=== PATIENT | male | born 1950 | race Caucasian/White ===

== ENCOUNTER 2018-02-18 20:23 | Emergency (ER) | payer MEDICARE, MEDICAID ==
--- NOTE | 2018-02-18 20:44 | EDM.PDOC ---
ED HPI GENERAL MEDICAL PROBLEM - General Chief Complaint: Lower Extremity Injury/Pain Stated Complaint: SWELLING LT ANKLE Time Seen by Provider: 02/18/18 20:39 Source of Information: Reports: Patient History Limitations: Reports: No Limitations - History of Present Illness INITIAL COMMENTS - FREE TEXT/NARRATIVE: Complains of left ankle pain and swelling x 2 days. Denies injury. Pain increases with weight bearing. History of gout. Denies foot or leg pain. Onset Date: 02/17/18 Duration: Day(s): (2) Location: Reports: Lower Extremity, Left Quality: Reports: Dull Severity: Moderate Improves with: Reports: None Worsens with: Reports: Other (weight bearing) - Related Data Allergies Allergy/AdvReac Type Severity Reaction Status Date / Time No Known Allergies Allergy Verified 02/18/18 20:33 Home Meds: Home Meds Donepezil HCl 10 mg PO BEDTIME 07/20/13 [History] Lactulose [Chronulac] 30 gm PO DAILY PRN 01/25/18 [History] Indomethacin 25 mg PO TID PRN #15 capsule 02/18/18 [Rx] Past Medical History HEENT History: Reports: Other (See Below) Other HEENT History: had something with his left eye, doesn't remember what was done Cardiovascular History: Reports: High Cholesterol, Hypertension Gastrointestinal History: Reports: Cirrhosis, GERD Genitourinary History: Reports: Chronic Renal Insuffiency, Other (See Below) ( hypomagnesia) Musculoskeletal History: Reports: Back Pain, Chronic, Other (See Below) (Gout) Neurological History: Reports: Other (See Below) Other Neuro History: ETOH induced dementia Psychiatric History: Reports: Dementia, Other (See Below) Other Psychiatric History: [facility] adult, [facility] service involved Hematologic History: Reports: B12 Deficiency Dermatologic History: Reports: Psoriasis - Infectious Disease History Infectious Disease History: Reports: Influenza, Measles, Mumps - Past Surgical History HEENT Surgical History: Reports: Adenoidectomy, Tonsillectomy Cardiovascular Surgical History: Reports: None Respiratory Surgical History: Reports: None GI Surgical History: Reports: Other (See Below) Other GI Surgeries/Procedures: hx of abd surgery not sure what was done Neurological Surgical History: Reports: None Social & Family History - Family History Family Medical History: Unobtainable - Tobacco Use Smoking Status *Q: Former Smoker Tobacco Use Within Last Twelve Months: No - Caffeine Use Caffeine Use: Reports: Soda Review of Systems - Review of Systems Review Of Systems: See Below Constitutional: Reports: No Symptoms Eyes: Reports: No Symptoms Ears: Reports: No Symptoms Nose: Reports: No Symptoms Mouth/Throat: Reports: No Symptoms Respiratory: Reports: No Symptoms Cardiovascular: Reports: No Symptoms GI/Abdominal: Reports: No Symptoms Genitourinary: Reports: No Symptoms Musculoskeletal: Reports: Joint Pain (left ankle pain and swelling) Neurological: Reports: No Symptoms ED EXAM, GENERAL - Physical Exam Exam: See Below Exam Limited By: No Limitations General Appearance: Alert, WD/WN, No Apparent Distress Ears: Normal External Exam Nose: Normal Inspection Throat/Mouth: No Airway Compromise Head: Atraumatic, Normocephalic Neck: Full Range of Motion Respiratory/Chest: No Respiratory Distress Peripheral Pulses: 2+: Dorsalis Pedis (L) Extremities: Other (Left ankle tenderness and swelling. Left foot is swollen but not tender. No left calf tenderness or swelling. No left upper leg tenderness.) Neurological: No Motor/Sensory Deficits Skin Exam: Warm, Dry, Intact Course - Orders/Labs/Meds Orders: Active Orders 24 hr Category Date Time Status Ankle Min 3V Lt [CR] Stat Exams 02/18/18 20:37 Taken Labs: Laboratory Tests 02/18/18 02/18/18 02/18/18 Range/Units 20:45 20:45 20:45 WBC 6.0 (4.5-12.0) X10-3/uL RBC 3.76 L (4.30-5.75) x10(6)uL Hgb 12.3 (11.5-15.5) g/dL Hct 36.2 (30.0-51.3) % MCV 96.2 H (80-96) fL MCH 32.8 (27.7-33.6) pg MCHC 34.0 (32.2-35.4) g/dL RDW 13.3 (11.5-15.5) % Plt Count 71 L (125-369) X10(3)uL MPV 8.4 (7.4-10.4) fL Neut % (Auto) 65.3 (46-82) % Lymph % (Auto) 24.9 (13-37) % [place] % (Auto) 8.3 (4-12) % Eos % (Auto) 1 (1.0-5.0) % Baso % (Auto) 0 (0-2) % Neut # (Auto) 3.9 (1.6-8.3) # Lymph # (Auto) 1.5 (0.6-5.0) # [place] # (Auto) 0.5 (0.0-1.3) # Eos # (Auto) 0.1 (0.0-0.8) # Baso # (Auto) 0.0 (0.0-0.2) # Sodium 138 (135-145) mmol/L Potassium 4.1 (3.5-5.3) mmol/L Chloride 104 (100-110) mmol/L Carbon Dioxide 27 (21-32) mmol/L BUN 17 (7-18) mg/dL Creatinine 1.4 H (0.70-1.30) mg/dL Est Cr Clr Drug Dosing 43.32 mL/min Estimated GFR (MDRD) 50 L (>60) BUN/Creatinine Ratio 12.1 (9-20) Glucose 168 H (80-116) mg/dL Uric Acid 6.1 H (2.6-6.0) mg/dL Calcium 8.0 L (8.6-10.2) mg/dL Meds: Medications Discontinued Medications Generic Name Dose Route Start Last Admin Trade Name Freq PRN Reason Stop Dose Admin Indomethacin 50 mg 02/18/18 21:25 Indocin PO 02/18/18 21:26 ONETIME ONE Indomethacin Confirm 02/18/18 21:34 Indocin Administered 02/18/18 21:35 Dose 25 mg .ROUTE .STK-MED ONE - Radiology Interpretation Free Text/Narrative:: Left Ankle XR: No acute osseous abnormality Departure - Departure Time of Disposition: 21:41 Disposition: DC/Tfer to [facility] 03 Condition: Good Clinical Impression: Gout Qualifiers: Gout site: ankle Gout etiology: idiopathic Chronicity: acute Laterality: left Qualified Code(s): M10.072 - Idiopathic gout, left ankle and foot - Discharge Information *PRESCRIPTION DRUG MONITORING PROGRAM REVIEWED*: No *COPY OF PRESCRIPTION DRUG MONITORING REPORT IN PATIENT MARIA TERESA: Not Applicable Prescriptions: Indomethacin 25 mg PO TID PRN #15 capsule PRN Reason: Pain Instructions: Gout, [id number] Forms: ED Department Discharge Additional Instructions: Fill prescription for Indomethacin and take as directed. Follow up with your primary physician in 2-3 days. - My Orders Last 24 Hours: My Active Orders 02/18/18 20:37 Ankle Min 3V Lt [CR] Stat - Assessment/Plan Last 24 Hours: My Active Orders 02/18/18 20:37 Ankle Min 3V Lt [CR] Stat
[2018-02-18] MEDS ORDERED: Indomethacin 50 MG Cap PO ONE (21:25)
[2018-02-18] MEDS ORDERED: Indomethacin 25 MG Cap ONE (21:34)
[2018-02-18 22:29] VITALS: BP 131/53
--- NOTE | 2018-02-20 11:43 | CR ---
INDICATION: Pain, no trauma. LEFT ANKLE: Three views of the left ankle revealed soft tissue swelling, mostly over the lateral malleolus. The ankle mortise appears to be intact without a fracture, dislocation, or other definite bone or joint abnormality. MTDD
== END 2018-02-18 22:01 ==
LOC: FB.ED 20:23
DX: M10.072 Idiopathic gout, left ankle and foot (principal); I12.9 Hypertensive chronic kidney disease with stage 1 through stage 4 chronic kidney disease, or unspecified chronic kidney disease; N18.9 Chronic kidney disease, unspecified; Z87.891 Personal history of nicotine dependence
CPT/HCPCS: 36415; 73610-LT; 80048; 84550; 85025; 99283; A9270-GY

== ENCOUNTER 2019-03-21 10:38 | Emergency (ER) | payer MEDICARE ==
[2019-03-21] MEDS ORDERED: Sodium Chloride 0.9% 10 ML Syringe FLUSH PRN (11:17)
[2019-03-21] MEDS: Sodium Chloride 0.9% 1,000 ML IV SCH ×2 (11:34→12:58)
[2019-03-21] MEDS ORDERED: Insulin Regular, Human 100 Units/ML 3 ML Vial SUBCUT ONE (12:07)
[2019-03-21] MEDS ORDERED: Insulin Regular, Human 100 Units/ML 3 ML Vial IV ONE (12:42)
[2019-03-21] MEDS ORDERED: Sodium Chloride 0.9% 1,000 ML IV SCH (12:45)
--- NOTE | 2019-03-21 12:46 | EDM.PDOC ---
ED HPI GENERAL MEDICAL PROBLEM - General Chief Complaint: Diabetic Complaint Time Seen by Provider: 03/21/19 11:15 - History of Present Illness INITIAL COMMENTS - FREE TEXT/NARRATIVE: sent in from SNF with elevated blood sugar of > 500, polyphagia and polydipsia of unknown duration but got worse in the last 2 days has had low grade fever, has no cough , no abd pain , no rash , no sore throat Onset: Unknown/Unsure Onset Date: 03/21/19 (noted to have BS > 500) Duration: Constant Location: Reports: Generalized, Other (denies any loclized pain ) Improves with: Reports: None Worsens with: Reports: None Context: Reports: Other (staff noted pt drinking too much ( pt drinks "pop" ) a lot) Treatments [employer]: Reports: Other (see below) (no treatment) - Related Data Allergies Allergy/AdvReac Type Severity Reaction Status Date / Time No Known Allergies Allergy Verified 05/22/18 08:37 Home Meds: Home Meds Lactulose [Chronulac] 45 gm PO MOWEFR 01/25/18 [History] Acetaminophen [Tylenol Arthritis Pain] 650 mg PO Q4H 02/18/18 [History] OLANZapine [ZyPREXA] 20 mg PO DAILY 02/18/18 [History] Albuterol/Ipratropium [DuoNeb 3.0-0.5 MG/3 ML] 1 unit INH Q4HR PRN 05/22/18 [ History] Allopurinol [Zyloprim] 100 mg PO DAILY 05/22/18 [History] Cholecalciferol (Vitamin D3) [Vitamin D3] 2,000 unit PO DAILY 05/22/18 [History] Donepezil HCl 10 mg PO DAILY 05/22/18 [History] Furosemide 20 mg PO DAILY 05/22/18 [History] Magnesium Hydroxide [Milk of Magnesia] 30 ml PO DAILY PRN 05/22/18 [History] Hydrocortisone 1 applic TOP ASDIRECTED PRN 03/21/19 [History] Insulin Glarg,Human.Rec.Analog [Lantus Solostar] 5 unit SUBCUT BEDTIME #1 pen [Rx] Insulin NPH Hum/Reg Insulin Hm [Humulin 70/30 Kwikpen] 100 unit SQ BIDAC #10 ml 03/21/19 [Rx] Loperamide HCl [Anti-Diarrheal] 2 mg PO ASDIRECTED PRN 03/21/19 [History] QUEtiapine Fumarate [Quetiapine Fumarate ER] 200 mg PO DAILY 03/21/19 [History] QUEtiapine Fumarate [Quetiapine Fumarate] 12.5 mg PO TID 03/21/19 [History] Selenium Sulfide [Anti-Dandruff] 1 applic TOP ASDIRECTED PRN 03/21/19 [History] Past Medical History - Past Health History Medical/Surgical History: Denies Medical/Surgical History HEENT History: Reports: Other (See Below) Other HEENT History: had something with his left eye, doesn't remember what was done Cardiovascular History: Reports: High Cholesterol, Hypertension Respiratory History: Reports: SOB Gastrointestinal History: Reports: Cirrhosis, GERD Genitourinary History: Reports: Chronic Renal Insuffiency, Other (See Below) ( hypomagnesia) Musculoskeletal History: Reports: Back Pain, Chronic, Other (See Below) (Gout) Neurological History: Reports: Other (See Below) Other Neuro History: ETOH induced dementia Psychiatric History: Reports: Dementia, Other (See Below) Other Psychiatric History: [facility], [facility] service involved Hematologic History: Reports: B12 Deficiency Dermatologic History: Reports: Psoriasis - Infectious Disease History Infectious Disease History: Reports: Influenza, Measles, Mumps - Past Surgical History HEENT Surgical History: Reports: Adenoidectomy, Tonsillectomy Cardiovascular Surgical History: Reports: None Respiratory Surgical History: Reports: None GI Surgical History: Reports: Other (See Below) Other GI Surgeries/Procedures: hx of abd surgery not sure what was done Neurological Surgical History: Reports: None Social & Family History - Family History Family Medical History: Unobtainable - Caffeine Use Caffeine Use: Reports: Soda ED ROS GENERAL - Review of Systems Review Of Systems: See Below Constitutional: Reports: Chills, Malaise HEENT: Reports: No Symptoms Respiratory: Reports: No Symptoms Cardiovascular: Reports: No Symptoms. Denies: Chest Pain, Dyspnea on Exertion Endocrine: Reports: Fatigue, High Glucose, Polydypsia, Polyuria GI/Abdominal: Reports: Anorexia : Reports: Frequency Musculoskeletal: Reports: No Symptoms Skin: Reports: No Symptoms Neurological: Denies: Confusion, Paresthesia, Change in Speech, Gait Disturbance Psychiatric: Reports: No Symptoms ED EXAM GENERAL NO PERIP PULSE - Physical Exam Exam: See Below Text/Narrative:: alert but oriented to self only, does not recall where he lives, thinks he still drinks alcohol and not able to say where he lives, not oriented to time Exam Limited By: Other (cognitive impairment) Eye Exam: Bilateral Eye: EOMI Ears: Normal External Exam Nose: Clear Rhinorrhea Throat/Mouth: Normal Oropharynx Head: Atraumatic, Normocephalic Neck: Supple, Non-Tender, Full Range of Motion Respiratory/Chest: Lungs Clear, Normal Breath Sounds Cardiovascular: Normal Peripheral Pulses, Regular Rate, Rhythm, No JVD, No Murmur GI/Abdominal: Soft, Non-Tender. No: Guarding Back Exam: Full Range of Motion, CVA Tenderness (R), CVA Tenderness (L) Extremities: Normal Range of Motion, Non-Tender Neurological: Alert, Oriented Skin Exam: Warm, Dry Course - Vital Signs Text/Narrative:: pt remained stable Had Ivf , Regular Insulin given 10 units Sc and then 10units IV had 2 liters of fluid , Blood sugar gradually reduced to 216 pt was given food to eat and BS has remained stable <250 pt to start on diabetic diet Start Lantus Insulin 5units at bedtime Start Insulin 70/30 10 units bid with meals Glucose monitoring Before meals and at bedtime Snacks at bedtime Appointment to see PCP Last Recorded V/S: Last Vital Signs Temp 36.6 C 03/21/19 11:00 Pulse 93 03/21/19 11:00 Resp 14 03/21/19 11:00 BP 112/53 L 03/21/19 11:00 Pulse Ox 95 03/21/19 11:00 - Orders/Labs/Meds Orders: Active Orders 24 hr Category Date Time Status Blood Glucose Check, Bedside [RC] INTERMITTENT Care 03/21/19 10:45 Active Cardiac Monitoring [RC] CONTINUOUS Care 03/21/19 11:17 Active Communication Order [RC] STAT Care 03/21/19 11:17 Active Communication Order [RC] STAT Care 03/21/19 11:17 Active AMMONIA, PLASMA Stat Lab 03/21/19 13:20 Received BASIC METABOLIC PANEL,BMP [CHEM] Stat Lab 03/21/19 15:33 Ordered CULTURE BLOOD [BC] Urgent Lab 03/21/19 11:35 Received CULTURE BLOOD [BC] Urgent Lab 03/21/19 11:40 Received Sodium Chloride 0.9% [Normal Saline] 1,000 ml Med 03/21/19 12:45 Active IV ASDIRECTED Sodium Chloride 0.9% [Normal Saline] 1,000 ml Med 03/21/19 11:30 Active IV BOLUS Sodium Chloride 0.9% [Saline Flush] Med 03/21/19 11:17 Active 10 ml FLUSH ASDIRECTED PRN Blood Culture x2 Reflex Set [OM.PC] Urgent Oth 03/21/19 11:17 Ordered Peripheral IV Insertion Adult [OM.PC] Stat Oth 03/21/19 11:17 Ordered Resuscitation Status Stat Resus Stat 03/21/19 11:17 Ordered Medication Orders Sodium Chloride (Normal Saline) 1,000 mls @ 999 mls/hr IV BOLUS JAIRO Last Admin: 03/21/19 12:58 Dose: 999 mls/hr Infusion: 03/21/19 12:35 Dose: 999 mls/hr Admin: 03/21/19 11:34 Dose: 999 mls/hr Sodium Chloride (Normal Saline) 1,000 mls @ 999 mls/hr IV ASDIRECTED JAIRO Sodium Chloride (Saline Flush) 10 ml FLUSH ASDIRECTED PRN PRN Reason: Keep Vein Open Labs: Laboratory Tests 03/21/19 03/21/19 03/21/19 Range/Units 09:05 11:17 11:35 Sodium 141 (135-145) mmol/L Potassium 3.7 (3.5-5.3) mmol/L Chloride 102 (100-110) mmol/L Carbon Dioxide 31 (21-32) mmol/L BUN 8 (7-18) mg/dL Creatinine 1.5 H (0.70-1.30) mg/dL Est Cr Clr Drug Dosing TNP Estimated GFR (MDRD) 46 L (>60) BUN/Creatinine Ratio 5.3 L (9-20) Glucose 465 H* (80-116) mg/dL Hemoglobin A1c 8.4 H (4.5-6.2) % Lactic Acid (0.4-2.2) mmol/L Calcium 8.5 L (8.6-10.2) mg/dL Phosphorus 2.4 L (2.6-4.6) mg/dL Magnesium 1.8 (1.8-2.5) mg/dL Total Bilirubin 1.1 (0.1-1.3) mg/dL AST 23 D (5-25) IU/L ALT 40 H D (12-36) U/L Alkaline Phosphatase 162 H (56-112) IU/L NT-Pro-B Natriuret Pep (<=125) pg/mL Total Protein 7.4 (6.0-8.0) g/dL Albumin 3.0 L (3.2-4.6) g/dL Globulin 4.4 g/dL Albumin/Globulin Ratio 0.7 Urine Color Yellow (YELLOW) Urine Appearance Clear (CLEAR) Urine pH 5.0 (5.0-6.5) Ur Specific [place] 1.015 (1.010-1.025) Urine Protein Negative (NEGATIVE) mg/dL Urine Glucose (UA) >1000 H (NORMAL) mg/dL Urine Ketones Negative (NEGATIVE) mg/dL Urine Occult Blood Trace (NEGATIVE) Urine Nitrite Negative (NEGATIVE) Urine Bilirubin Negative (NEGATIVE) Urine Urobilinogen Normal (NEGATIVE) mg/dL Ur Leukocyte Esterase Negative (NEGATIVE) Urine RBC 0-5 (0-5) Urine WBC 0-5 (0-5) Ur Squamous Epith Cells Few H (NS,R,O) Urine Bacteria Few H (NS) Urine Yeast Occasional H (NS) 03/21/19 03/21/19 Range/Units 11:35 11:35 Sodium (135-145) mmol/L Potassium (3.5-5.3) mmol/L Chloride (100-110) mmol/L Carbon Dioxide (21-32) mmol/L BUN (7-18) mg/dL Creatinine (0.70-1.30) mg/dL Est Cr Clr Drug Dosing Estimated GFR (MDRD) (>60) BUN/Creatinine Ratio (9-20) Glucose (80-116) mg/dL Hemoglobin A1c (4.5-6.2) % Lactic Acid 1.7 (0.4-2.2) mmol/L Calcium (8.6-10.2) mg/dL Phosphorus (2.6-4.6) mg/dL Magnesium (1.8-2.5) mg/dL Total Bilirubin (0.1-1.3) mg/dL AST (5-25) IU/L ALT (12-36) U/L Alkaline Phosphatase (56-112) IU/L NT-Pro-B Natriuret Pep 321 H (<=125) pg/mL Total Protein (6.0-8.0) g/dL Albumin (3.2-4.6) g/dL Globulin g/dL Albumin/Globulin Ratio Urine Color (YELLOW) Urine Appearance (CLEAR) Urine pH (5.0-6.5) Ur Specific [place] (1.010-1.025) Urine Protein (NEGATIVE) mg/dL Urine Glucose (UA) (NORMAL) mg/dL Urine Ketones (NEGATIVE) mg/dL Urine Occult Blood (NEGATIVE) Urine Nitrite (NEGATIVE) Urine Bilirubin (NEGATIVE) Urine Urobilinogen (NEGATIVE) mg/dL Ur Leukocyte Esterase (NEGATIVE) Urine RBC (0-5) Urine WBC (0-5) Ur Squamous Epith Cells (NS,R,O) Urine Bacteria (NS) Urine Yeast (NS) Meds: Medications Generic Name Dose Route Start Last Admin Trade Name Freq PRN Reason Stop Dose Admin Sodium Chloride 1,000 mls @ 999 mls/hr 03/21/19 11:30 03/21/19 12:58 Normal Saline IV 999 mls/hr BOLUS JAIRO Administration Sodium Chloride 1,000 mls @ 999 mls/hr 03/21/19 12:45 Normal Saline IV ASDIRECTED JAIRO Sodium Chloride 10 ml 03/21/19 11:17 Saline Flush FLUSH ASDIRECTED PRN Keep Vein Open Discontinued Medications Generic Name Dose Route Start Last Admin Trade Name Freq PRN Reason Stop Dose Admin Insulin Human Regular 10 unit 03/21/19 12:07 03/21/19 12:13 Humulin R SUBCUT 03/21/19 12:08 10 unit ONETIME ONE Administration Insulin Human Regular 10 unit 03/21/19 12:42 03/21/19 12:51 Humulin R IV 03/21/19 12:43 10 units ONETIME ONE Administration - Radiology Interpretation Free Text/Narrative:: discussed with electronic engineering [employer] physician states Ok to send pt back to SNF with insulin can be monitored there , does not need to be admitted in hospital Departure - Departure Time of Disposition: 15:45 Disposition: DC/Tfer to SNF 03 Clinical Impression: Hyperglycemia, Dementia associated with alcoholism with behavioral disturbance - Discharge Information *PRESCRIPTION DRUG MONITORING PROGRAM REVIEWED*: Not Applicable *COPY OF PRESCRIPTION DRUG MONITORING REPORT IN PATIENT MARIA TERESA: Not Applicable Referrals: Abdoul Miller MD [Primary Care Provider] - Forms: ED Department Discharge Additional Instructions: Glucose monitoring Before meals and at Bedtime Diabetic diet - Problem List & Annotations (1) Hyperglycemia without ketosis SNOMED Code(s): 66526538 Code(s): R73.9 - HYPERGLYCEMIA, UNSPECIFIED Status: Acute Current Visit: Yes (2) Dehydration SNOMED Code(s): 79849566 Code(s): E86.0 - DEHYDRATION Status: Acute Current Visit: Yes (3) Dementia associated with alcoholism with behavioral disturbance SNOMED Code(s): 336454, 1204718428154 Code(s): F10.27 - ALCOHOL DEPENDENCE WITH ALCOHOL-INDUCED PERSISTING DEMENTIA Status: Acute Current Visit: Yes Annotation/Comment:: Admit to Observation, OT and PT evaluations, skin cares, reattempt Tele-Psych evaluation , coordinate with Chad Virgen [facility] regarding vulnerable adult status - My Orders Last 24 Hours: My Active Orders 03/21/19 10:45 Blood Glucose Check, Bedside [RC] INTERMITTENT 03/21/19 11:17 Cardiac Monitoring [RC] CONTINUOUS Communication Order [RC] STAT Communication Order [RC] STAT Sodium Chloride 0.9% [Saline Flush] 10 ml FLUSH ASDIRECTED PRN Blood Culture x2 Reflex Set [OM.PC] Urgent Peripheral IV Insertion Adult [OM.PC] Stat Resuscitation Status Stat 03/21/19 11:30 Sodium Chloride 0.9% [Normal Saline] 1,000 ml IV BOLUS 03/21/19 11:35 CULTURE BLOOD [BC] Urgent 03/21/19 11:40 CULTURE BLOOD [BC] Urgent 03/21/19 12:45 Sodium Chloride 0.9% [Normal Saline] 1,000 ml IV ASDIRECTED 03/21/19 13:20 AMMONIA, PLASMA Stat 03/21/19 15:33 BASIC METABOLIC PANEL,BMP [CHEM] Stat - Assessment/Plan Last 24 Hours: My Active Orders 03/21/19 10:45 Blood Glucose Check, Bedside [RC] INTERMITTENT 03/21/19 11:17 Cardiac Monitoring [RC] CONTINUOUS Communication Order [RC] STAT Communication Order [RC] STAT Sodium Chloride 0.9% [Saline Flush] 10 ml FLUSH ASDIRECTED PRN Blood Culture x2 Reflex Set [OM.PC] Urgent Peripheral IV Insertion Adult [OM.PC] Stat Resuscitation Status Stat 03/21/19 11:30 Sodium Chloride 0.9% [Normal Saline] 1,000 ml IV BOLUS 03/21/19 11:35 CULTURE BLOOD [BC] Urgent 03/21/19 11:40 CULTURE BLOOD [BC] Urgent 03/21/19 12:45 Sodium Chloride 0.9% [Normal Saline] 1,000 ml IV ASDIRECTED 03/21/19 13:20 AMMONIA, PLASMA Stat 03/21/19 15:33 BASIC METABOLIC PANEL,BMP [CHEM] Stat
[2019-03-21 13:57] LABS: HEMOGLOBIN A1C 8.4 % (4.5-6.2)
[2019-03-21 16:11] VITALS: BP 140/74; PULSE 107
== END 2019-03-21 16:45 ==
LOC: FB.ED 10:38
DX: E11.65 Type 2 diabetes mellitus with hyperglycemia (principal); F10.27 Alcohol dependence with alcohol-induced persisting dementia; I12.9 Hypertensive chronic kidney disease with stage 1 through stage 4 chronic kidney disease, or unspecified chronic kidney disease; E11.22 Type 2 diabetes mellitus with diabetic chronic kidney disease; N18.9 Chronic kidney disease, unspecified; Z79.4 Long term (current) use of insulin
CPT/HCPCS: 36415; 80048; 80053; 81001; 82140; 82962; 83036; 83605; 83735; 83880; 84100; 87040; 96361; 96372; 96374; 99284; 99285; J1815; J7030

== ENCOUNTER 2020-10-26 11:18 | Emergency (ER) | payer MEDICARE ==
[2020-10-26] MEDS ORDERED: Sodium Chloride 0.9% 10 ML Syringe FLUSH PRN (11:23)
[2020-10-26] MEDS ORDERED: Sodium Chloride 0.9% 500 ML IV ONE (11:24)
[2020-10-26] MEDS ORDERED: Insulin Regular, Human 100 Units/ML 3 ML Vial IV ONE (11:26)
[2020-10-26] MEDS ORDERED: Glucagon,Human Recombinant 1 MG Vial IM PRN ×2 (11:26→14:07)
[2020-10-26] MEDS ORDERED: Insulin Regular, Human 100 Units/ML 3 ML Vial SUBCUT ONE ×2 (11:26→14:07)
[2020-10-26] MEDS ORDERED: 50% Dextrose in Water 50 ML Syringe IVPUSH PRN ×2 (11:26→14:07)
--- NOTE | 2020-10-26 12:05 | EDM.PDOC ---
ED HPI GENERAL MEDICAL PROBLEM - General Chief Complaint: General Stated Complaint: CBG 600+ Time Seen by Provider: 10/26/20 12:00 Source of Information: Reports: Patient, [place] Records History Limitations: Reports: Other (Dementia) - History of Present Illness INITIAL COMMENTS - FREE TEXT/NARRATIVE: Patient has Type II Diabetes. He was more thirsty than usual today, so RN checked his blood sugar and was found to be >600. Patient states he feels fine, has no complaints. Last time [place] RN checked blood sugar before today was November 2019. Per [place] records, patient is not taking any diabetic medications, Insulin or otherwise. He was on Lantus 5 units qhs and Humulin 70/30 10 units BID on 03/21/19 ED visit. Onset: Today - Related Data Allergies Allergy/AdvReac Type Severity Reaction Status Date / Time No Known Allergies Allergy Verified 05/22/18 08:37 Home Meds: Home Meds Lactulose [Chronulac] 45 gm PO MOWEFR 01/25/18 [History] Acetaminophen [Tylenol Arthritis Pain] 650 mg PO Q4H PRN 02/18/18 [History] Donepezil HCl 10 mg PO DAILY 05/22/18 [History] Furosemide 20 mg PO MOWEFR 05/22/18 [History] allopurinoL [Zyloprim] 100 mg PO DAILY 05/22/18 [History] Loperamide HCl [Anti-Diarrheal] 2 mg PO ASDIRECTED PRN 03/21/19 [History] QUEtiapine Fumarate [Quetiapine Fumarate ER] 300 mg PO BEDTIME 03/21/19 [History] QUEtiapine Fumarate [Quetiapine Fumarate] 25 mg PO BID 03/21/19 [History] Aspirin 81 mg PO DAILY 10/26/20 [History] Calcium Carb/Vit D3/Minerals [Calcium 600+D Plus Minerals] 1 tab PO DAILY 10/26/20 [History] Fluocinonide [Lidex 0.05% Crm] 1 applic TOP SUSA 10/26/20 [History] Losartan Potassium 25 mg PO DAILY 10/26/20 [History] Mirtazapine [Remeron] 15 mg PO BEDTIME 10/26/20 [History] Multivitamin 1 tab PO DAILY 10/26/20 [History] OLANZapine [ZyPREXA] 10 mg PO DAILY 10/26/20 [History] Sodium Chloride [Saline Nasal [place]] 1 spray NASBOTH TID PRN 10/26/20 [History] hydrOXYzine pamoate [Hydroxyzine Pamoate] 25 mg PO 1200 10/26/20 [History] hydrOXYzine pamoate [Hydroxyzine Pamoate] 50 mg PO DAILY 10/26/20 [History] Past Medical History Cardiovascular History: Reports: High Cholesterol, Hypertension Gastrointestinal History: Reports: Cirrhosis, GERD Genitourinary History: Reports: Chronic Renal Insuffiency, Other (See Below) (hypomagnesia) Musculoskeletal History: Reports: Back Pain, Chronic, Other (See Below) (Gout) Neurological History: Reports: Other (See Below) Other Neuro History: ETOH induced dementia Psychiatric History: Reports: Dementia, Other (See Below) Other Psychiatric History: vunerable adult, [facility] service involved Endocrine/Metabolic History: Reports: Diabetes, Type II Hematologic History: Reports: B12 Deficiency Dermatologic History: Reports: Psoriasis - Infectious Disease History Infectious Disease History: Reports: Influenza, Measles, Mumps - Past Surgical History HEENT Surgical History: Reports: Adenoidectomy, Tonsillectomy Cardiovascular Surgical History: Reports: None Respiratory Surgical History: Reports: None GI Surgical History: Reports: Other (See Below) Other GI Surgeries/Procedures: hx of abd surgery not sure what was done Neurological Surgical History: Reports: None Social & Family History - Family History Family Medical History: Unobtainable - Caffeine Use Caffeine Use: Reports: Soda ED ROS GENERAL - Review of Systems Review Of Systems: Comprehensive ROS is negative, except as noted in HPI. ED EXAM, GENERAL - Physical Exam Exam: See Below Exam Limited By: No Limitations General Appearance: Alert, WD/WN, No Apparent Distress Eye Exam: Bilateral Eye: EOMI, PERRL Nose: Normal Inspection Head: Atraumatic, Normocephalic Neck: Full Range of Motion Respiratory/Chest: No Respiratory Distress, Lungs Clear, Normal Breath Sounds Cardiovascular: Regular Rate, Rhythm, No Murmur GI/Abdominal: Soft, Non-Tender, No Distention Back Exam: Full Range of Motion Extremities: Normal Range of Motion Neurological: Alert, No Motor/Sensory Deficits Psychiatric: Normal Affect, Normal Mood Skin Exam: Warm, Dry, Intact, Normal Color Course - Vital Signs Last Recorded V/S: Last Vital Signs Temp 36.8 C 10/26/20 12:29 Pulse 95 10/26/20 12:29 Resp 16 10/26/20 12:29 BP 134/60 10/26/20 12:29 Pulse Ox 99 10/26/20 12:29 - Orders/Labs/Meds Orders: Active Orders 24 hr Category Date Time Status Admission Status [Patient Status] [ADT] Routine ADT 10/26/20 12:51 Active Accu Check [Blood Glucose Check, Bedside] [RC] Q1H Care 10/26/20 11:23 Active Dextrose 50% in Water Med 10/26/20 11:26 Active 50 ml IVPUSH ASDIRECTED PRN Glucagon,Human Recombinant [GlucaGen] Med 10/26/20 11:26 Active 1 mg IM ASDIRECTED PRN Sodium Chloride 0.9% [Normal Saline] 1,000 ml Med 10/26/20 13:30 Active IV ASDIRECTED Sodium Chloride 0.9% [Saline Flush] Med 10/26/20 11:23 Active 10 ml FLUSH ASDIRECTED PRN Saline Lock Insert [OM.PC] Routine Ot 10/26/20 11:23 Ordered Medication Orders Dextrose/Water (50% Dextrose In Water 50 Ml Syringe) 50 ml IVPUSH ASDIRECTED PRN PRN Reason: Hypoglycemia Glucagon (Glucagon,Human Recombinant 1 Mg Vial) 1 mg IM ASDIRECTED PRN PRN Reason: Hypoglycemia Sodium Chloride (Normal Saline) 1,000 mls @ 75 mls/hr IV ASDIRECTED JAIRO Sodium Chloride (Sodium Chloride 0.9% 10 Ml Syringe) 10 ml FLUSH ASDIRECTED PRN PRN Reason: Keep Vein Open Labs: Laboratory Tests 10/26/20 10/26/20 10/26/20 Range/Units 11:24 12:00 12:00 WBC 4.1 (3.2-10.1) x10-3/uL RBC 3.90 (3.90-5.90) x10(6)uL Hgb 12.9 (12.9-17.7) g/dL Hct 38.7 (38.3-50.1) % MCV 99.1 H (80.8-98.7) fL MCH 33.0 (27.0-33.3) pg MCHC 33.3 (28.7-35.3) g/dL RDW 13.5 (12.4-15.0) % Plt Count 81 L (117-477) x10(3)uL MPV 10.0 (6.7-11.0) fL Neut % (Auto) 63.3 (40.3-71.8) % Lymph % (Auto) 28.0 (15.8-45.3) % Pepin % (Auto) 6.0 (5.5-15.2) % Eos % (Auto) 2.2 (0.1-6.8) % Baso % (Auto) 0.5 (0.3-3.8) % Neut # (Auto) 2.6 (1.7-6.9) x10-3/uL Lymph # (Auto) 1.1 (0.5-4.5) x10-3/uL Pepin # (Auto) 0.2 (0.0-1.2) x10-3/uL Eos # (Auto) 0.1 (0.0-0.6) x10-3/uL Baso # (Auto) 0.0 (0.0-0.3) x10-3/uL Sodium 129 L D (135-145) mmol/L Potassium 4.9 (3.5-5.3) mmol/L Chloride 96 L D (100-110) mmol/L Carbon Dioxide 23 (21-32) mmol/L BUN 12 (7-18) mg/dL Creatinine 2.0 H* (0.70-1.30) mg/dL Est Cr Clr Drug Dosing 31.67 mL/min Estimated GFR (MDRD) 33 L (>60) BUN/Creatinine Ratio 6.0 L (9-20) Glucose 876 H* D (80-116) mg/dL POC Glucose > 600 H* (80-116) mg/dL Calcium 7.8 L (8.6-10.2) mg/dL Urine Color (YELLOW) Urine Appearance (CLEAR) Urine pH (5.0-6.5) Ur Specific [place] (1.010-1.025) Urine Protein (NEGATIVE) mg/dL Urine Glucose (UA) (NORMAL) mg/dL Urine Ketones (NEGATIVE) mg/dL Urine Occult Blood (NEGATIVE) Urine Nitrite (NEGATIVE) Urine Bilirubin (NEGATIVE) Urine Urobilinogen (NEGATIVE) mg/dL Ur Leukocyte Esterase (NEGATIVE) Urine WBC (0-5) Ur Squamous Epith Cells (NS,R,O) Urine Bacteria (NS) 10/26/20 10/26/20 Range/Units 12:32 12:55 WBC (3.2-10.1) x10-3/uL RBC (3.90-5.90) x10(6)uL Hgb (12.9-17.7) g/dL Hct (38.3-50.1) % MCV (80.8-98.7) fL MCH (27.0-33.3) pg MCHC (28.7-35.3) g/dL RDW (12.4-15.0) % Plt Count (117-477) x10(3)uL MPV (6.7-11.0) fL Neut % (Auto) (40.3-71.8) % Lymph % (Auto) (15.8-45.3) % Pepin % (Auto) (5.5-15.2) % Eos % (Auto) (0.1-6.8) % Baso % (Auto) (0.3-3.8) % Neut # (Auto) (1.7-6.9) x10-3/uL Lymph # (Auto) (0.5-4.5) x10-3/uL Pepin # (Auto) (0.0-1.2) x10-3/uL Eos # (Auto) (0.0-0.6) x10-3/uL Baso # (Auto) (0.0-0.3) x10-3/uL Sodium (135-145) mmol/L Potassium (3.5-5.3) mmol/L Chloride (100-110) mmol/L Carbon Dioxide (21-32) mmol/L BUN (7-18) mg/dL Creatinine (0.70-1.30) mg/dL Est Cr Clr Drug Dosing mL/min Estimated GFR (MDRD) (>60) BUN/Creatinine Ratio (9-20) Glucose (80-116) mg/dL POC Glucose 588 H* (80-116) mg/dL Calcium (8.6-10.2) mg/dL Urine Color Yellow (YELLOW) Urine Appearance Clear (CLEAR) Urine pH 5.0 (5.0-6.5) Ur Specific [place] 1.010 (1.010-1.025) Urine Protein Negative (NEGATIVE) mg/dL Urine Glucose (UA) >1000 H (NORMAL) mg/dL Urine Ketones Negative (NEGATIVE) mg/dL Urine Occult Blood Negative (NEGATIVE) Urine Nitrite Negative (NEGATIVE) Urine Bilirubin Negative (NEGATIVE) Urine Urobilinogen Normal (NEGATIVE) mg/dL Ur Leukocyte Esterase Negative (NEGATIVE) Urine WBC 0-5 (0-5) Ur Squamous Epith Cells Occasional (NS,R,O) Urine Bacteria Few H (NS) Meds: Medications Generic Name Dose Route Start Last Admin Trade Name Freq PRN Reason Stop Dose Admin Dextrose/Water 50 ml 10/26/20 11:26 50% Dextrose In Water 50 Ml Syringe IVPUSH ASDIRECTED PRN Hypoglycemia Glucagon 1 mg 10/26/20 11:26 Glucagon,Human Recombinant 1 Mg Vial IM ASDIRECTED PRN Hypoglycemia Sodium Chloride 1,000 mls @ 75 mls/hr 10/26/20 13:30 Normal Saline IV ASDIRECTED JAIRO Sodium Chloride 10 ml 10/26/20 11:23 Sodium Chloride 0.9% 10 Ml Syringe FLUSH ASDIRECTED PRN Keep Vein Open Discontinued Medications Generic Name Dose Route Start Last Admin Trade Name Freq PRN Reason Stop Dose Admin Sodium Chloride 500 mls @ 500 mls/hr 10/26/20 11:24 10/26/20 11:48 Normal Saline IV 10/26/20 12:23 500 mls/hr .BOLUS ONE Administration Insulin Human Regular 5 unit 10/26/20 11:26 10/26/20 11:55 Insulin Regular, Human 100 Units/Ml 3 Ml Vial IV 10/26/20 11:27 5 units ONETIME ONE Administration Insulin Human Regular 10 unit 10/26/20 11:26 10/26/20 11:56 Insulin Regular, Human 100 Units/Ml 3 Ml Vial SUBCUT 10/26/20 11:27 10 units ONETIME ONE Administration - Re-Assessments/Exams Free Text/Narrative Re-Assessment/Exam: 10/26/20 12:53 Dr. Conley agrees to admit patient to observation. 10/26/20 13:04 Blood sugar improved to 588 after 500 ml NS bolus, Regular Humulin 5 units IV and 10 units SC. Departure - Departure Time of Disposition: 12:52 Disposition: Refer to Observation Condition: Fair Clinical Impression: [place] (acute kidney injury) Hyperglycemia due to type 2 diabetes mellitus Qualifiers: Diabetes mellitus local intermodal truck driver insulin use: without local intermodal truck driver use Qualified Code(s): E11.65 - Type 2 diabetes mellitus with hyperglycemia - Discharge Information *PRESCRIPTION DRUG MONITORING PROGRAM REVIEWED*: No *COPY OF PRESCRIPTION DRUG MONITORING REPORT IN PATIENT MARIA TERESA: Not Applicable Referrals: Abdoul Miller MD [Primary Care Provider] - Forms: ED Department Discharge Sepsis Event Note (ED) - Focused Exam Vital Signs: Vital Signs Temp Pulse Resp BP Pulse Ox 10/26/20 12:29 36.8 C 95 16 134/60 99 - My Orders Last 24 Hours: My Active Orders 10/26/20 11:23 Accu Check [Blood Glucose Check, Bedside] [RC] Q1H Sodium Chloride 0.9% [Saline Flush] 10 ml FLUSH ASDIRECTED PRN Saline Lock Insert [OM.PC] Routine 10/26/20 11:26 Dextrose 50% in Water 50 ml IVPUSH ASDIRECTED PRN Glucagon,Human Recombinant [GlucaGen] 1 mg IM ASDIRECTED PRN 10/26/20 12:51 Admission Status [Patient Status] [ADT] Routine 10/26/20 13:30 Sodium Chloride 0.9% [Normal Saline] 1,000 ml IV ASDIRECTED - Assessment/Plan Last 24 Hours: My Active Orders 10/26/20 11:23 Accu Check [Blood Glucose Check, Bedside] [RC] Q1H Sodium Chloride 0.9% [Saline Flush] 10 ml FLUSH ASDIRECTED PRN Saline Lock Insert [OM.PC] Routine 10/26/20 11:26 Dextrose 50% in Water 50 ml IVPUSH ASDIRECTED PRN Glucagon,Human Recombinant [GlucaGen] 1 mg IM ASDIRECTED PRN 10/26/20 12:51 Admission Status [Patient Status] [ADT] Routine 10/26/20 13:30 Sodium Chloride 0.9% [Normal Saline] 1,000 ml IV ASDIRECTED
[2020-10-26] MEDS ORDERED: Sodium Chloride 0.9% 1,000 ML IV SCH (13:30)
[2020-10-26] MEDS ORDERED: Sodium Chloride 0.9% 1,000 ML IV ONE (13:51)
[2020-10-26 15:01] VITALS: BP 148/42; PULSE 90
== END 2020-10-26 17:33 | disposition admitted as inpatient to this hospital (09) ==
LOC: FB.ED 11:18 → FB.MS 13:36 → UNDOADMOB 13:36
DX: E11.65 Type 2 diabetes mellitus with hyperglycemia (principal); N17.9 Acute kidney failure, unspecified; I10 Essential (primary) hypertension; Z79.899 Other long term (current) drug therapy
CPT/HCPCS: 36415; 80048; 81001; 82947; 85025; 99284; J1815; J7030; J7040

== ENCOUNTER 2021-09-03 15:00 | Emergency (ER) | payer MEDICARE ==
[2021-09-03 15:34] VITALS: BP 128/75; PULSE 95
== END 2021-09-03 16:00 ==
LOC: FB.ED 15:00
DX: R07.89 Other chest pain (principal); K21.9 Gastro-esophageal reflux disease without esophagitis; E78.00 Pure hypercholesterolemia, unspecified; I12.9 Hypertensive chronic kidney disease with stage 1 through stage 4 chronic kidney disease, or unspecified chronic kidney disease; E11.22 Type 2 diabetes mellitus with diabetic chronic kidney disease; N18.9 Chronic kidney disease, unspecified; Z79.899 Other long term (current) drug therapy; Z79.82 Long term (current) use of aspirin; Z79.4 Long term (current) use of insulin
CPT/HCPCS: 36415; 71045; 80053; 84484; 85025; 93005; 93010; 99283; 99285-25

== ENCOUNTER 2021-11-04 09:18 | Emergency (ER) | payer MEDICARE ==
[2021-11-04 10:06] LABS: ESTIMATED GFR 40 (>60)
[2021-11-04 12:05] VITALS: BP 128/66; PULSE 75
[2021-11-04] MEDS ORDERED: Ondansetron 4 MG Tab.DIS PO PRN (13:54)
[2021-11-04] MEDS ORDERED: 50% Dextrose in Water 50 ML Syringe IVPUSH PRN (14:00)
[2021-11-04] MEDS ORDERED: Glucagon,Human Recombinant 1 MG Vial IM PRN (14:00)
[2021-11-04] MEDS ORDERED: Polyvinyl Alcohol 1.4% Ophth Soln 15 ML Bottle EYEBOTH PRN (14:00)
[2021-11-04] MEDS ORDERED: Sulfamethoxazole/Trimethoprim 800-160 MG Tab PO SCH (14:15)
[2021-11-04] MEDS ORDERED: Lactulose Soln 10 GM/15 ML ML 473 ML Bottle PO SCH (18:00)
[2021-11-04] MEDS ORDERED: Insulin Glargine,Human Rec. Analog 100 Units/ML 3 ML Pen SUBCUT SCH (21:00)
[2021-11-04] MEDS ORDERED: Mirtazapine 15 MG Tab PO SCH (21:00)
[2021-11-05] MEDS ORDERED: Losartan 25 MG Tab PO SCH (09:00)
[2021-11-05] MEDS ORDERED: Non-Formulary Medication 1 Each (Multivitamin [Multivitamin] 1 EACH Tablet) PO SCH (09:00)
[2021-11-05] MEDS ORDERED: metFORMIN 500 MG Tab PO SCH (09:00)
== END 2021-11-04 10:55 ==
LOC: FB.ED 09:18
DX: N39.0 Urinary tract infection, site not specified (principal); F03.91 Unspecified dementia, unspecified severity, with behavioral disturbance; I12.9 Hypertensive chronic kidney disease with stage 1 through stage 4 chronic kidney disease, or unspecified chronic kidney disease; E11.22 Type 2 diabetes mellitus with diabetic chronic kidney disease; N18.9 Chronic kidney disease, unspecified; F10.20 Alcohol dependence, uncomplicated
CPT/HCPCS: 36415; 80053; 81001; 85025; 87086; 87088; 87186; 99284; 99285

== ENCOUNTER 2021-11-04 13:54 | Observation (INO) | payer MEDICARE ==
[2021-11-04] MEDS ORDERED: Ondansetron 4 MG Tab.DIS PO PRN (14:10)
[2021-11-04] MEDS ORDERED: Bisacodyl 10 MG Supp RECTAL PRN (14:16)
[2021-11-04] MEDS ORDERED: Glucagon,Human Recombinant 1 MG Vial IM PRN (14:16)
[2021-11-04] MEDS ORDERED: 50% Dextrose in Water 50 ML Syringe IVPUSH PRN (14:16)
[2021-11-04] MEDS ORDERED: Polyvinyl Alcohol 1.4% Ophth Soln 15 ML Bottle EYEBOTH PRN (14:16)
[2021-11-04] MEDS ORDERED: Acetaminophen 325 MG Tab PO PRN (14:23)
[2021-11-04] MEDS: SULFAMETHOXAZOLE PO SCH ×2 (15:02→20:10)
[2021-11-04] MEDS: TRIMETHOPRIM PO SCH ×2 (15:02→20:10)
[2021-11-04] MEDS ORDERED: Enoxaparin 30 MG/0.3 ML Syringe SUBCUT SCH (17:45)
[2021-11-04] MEDS: LACTULOSE PO SCH (18:31)
[2021-11-04] MEDS: CITRACAL PO SCH (18:33)
[2021-11-04] MEDS: [UNRECOGNIZED DRUG - OTHER] PO SCH (18:33)
[2021-11-04] MEDS: Gabapentin 100 MG Cap PO SCH (20:17)
[2021-11-04] MEDS ORDERED: Gabapentin 100 MG Cap PO SCH (21:00)
[2021-11-04] MEDS ORDERED: INSULIN GLARGINE HUMAN REC ANALOG 100 UNIT/ML SUBCUT SCH (21:00)
[2021-11-04] MEDS ORDERED: OLANZapine 5 MG Tab PO ONE (21:00)
[2021-11-04] MEDS ORDERED: Mirtazapine 15 MG Tab *PTOM PO SCH (21:00)
[2021-11-05 06:02] LABS: ESTIMATED GFR 40 (>60)
[2021-11-05] MEDS: CITRACAL PO SCH (07:56)
[2021-11-05] MEDS: [UNRECOGNIZED DRUG - OTHER] PO SCH (07:56)
[2021-11-05] MEDS: LACTULOSE PO SCH (07:57)
[2021-11-05] MEDS: Gabapentin 100 MG Cap PO SCH (08:00)
[2021-11-05] MEDS: TRIMETHOPRIM PO SCH (08:01)
[2021-11-05] MEDS: SULFAMETHOXAZOLE PO SCH (08:01)
[2021-11-05 08:05] VITALS: BP 132/62
[2021-11-05] MEDS ORDERED: HYDROXYZINE PAMOATE 50 MG PO SCH (09:00)
[2021-11-05] MEDS ORDERED: Losartan 25 MG Tab *PTOM PO SCH (09:00)
[2021-11-05] MEDS ORDERED: OMEPRAZOLE 20 MG PO SCH (09:00)
[2021-11-05] MEDS ORDERED: Furosemide 20 MG Tab *PTOM PO SCH (09:00)
[2021-11-05] MEDS ORDERED: metFORMIN 500 MG Tab *PTOM PO SCH (09:00)
[2021-11-05] MEDS ORDERED: Aspirin 81 MG Tab.Chew *PTOM PO SCH (09:00)
[2021-11-05] MEDS ORDERED: Multivitamin Tab *PTOM PO SCH (09:00)
[2021-11-05] MEDS ORDERED: Allopurinol 100 MG Tab *PTOM PO SCH (09:00)
[2021-11-05 09:13] VITALS: PULSE 75
[2021-11-05] MEDS ORDERED: HYDROXYZINE PAMOATE 25 MG PO SCH (12:00)
[2021-11-06] MEDS ORDERED: FLUOCINONIDE 0.05% TOP SCH (21:00)
== END 2021-11-05 10:20 ==
LOC: FB.MS 13:54
PROVIDERS: ADMIT Family Medicine; ATTEND Family Medicine
DX: R53.1 Weakness (principal); K21.9 Gastro-esophageal reflux disease without esophagitis; E78.00 Pure hypercholesterolemia, unspecified; E11.22 Type 2 diabetes mellitus with diabetic chronic kidney disease; I12.9 Hypertensive chronic kidney disease with stage 1 through stage 4 chronic kidney disease, or unspecified chronic kidney disease; E53.8 Deficiency of other specified B group vitamins; N18.32 Chronic kidney disease, stage 3b; F10.27 Alcohol dependence with alcohol-induced persisting dementia; E11.65 Type 2 diabetes mellitus with hyperglycemia; N30.00 Acute cystitis without hematuria; Z20.822 Contact with and (suspected) exposure to COVID-19; Z79.899 Other long term (current) drug therapy; Z79.82 Long term (current) use of aspirin; Z79.4 Long term (current) use of insulin; Z86.73 Personal history of transient ischemic attack (TIA), and cerebral infarction without residual deficits; Z98.890 Other specified postprocedural states; Z87.891 Personal history of nicotine dependence; W19.XXXA Unspecified fall, initial encounter
CPT/HCPCS: 36415; 80048; 82947; 85025; A9270-GY; G0378; J1815-GY; U0002

== ENCOUNTER 2022-01-14 21:23 | Observation (INO) | payer MEDICARE ==
[2022-01-14] MEDS ORDERED: Albuterol/Ipratropium 3.0-0.5 MG/3 ML Neb Soln NEB ONE (22:01)
[2022-01-14] MEDS: Sodium Chloride 0.9% 1,000 ML IV SCH ×2 (22:08→23:27)
[2022-01-14 22:09] LABS: ESTIMATED GFR 53 mL/min (>60)
[2022-01-14] MEDS ORDERED: Piperacillin/Tazobactam 4.5 GM in Sodium Chloride 0.9% 100 ML IV SCH (22:30)
[2022-01-14] MEDS ORDERED: Albuterol/Ipratropium 3.0-0.5 MG/3 ML Neb Soln NEB PRN (23:26)
[2022-01-14] MEDS ORDERED: Ondansetron 4 MG/2 ML SDV IV PRN (23:26)
[2022-01-14] MEDS ORDERED: Enoxaparin 40 MG/0.4 ML Syringe SUBCUT SCH (23:30)
[2022-01-14] MEDS ORDERED: Furosemide 20 MG Tab PO SCH (23:45)
[2022-01-14] MEDS ORDERED: traZODone 50 MG Tab PO PRN (23:53)
[2022-01-14] MEDS ORDERED: Gabapentin 100 MG Cap PO PRN (23:53)
[2022-01-14] MEDS ORDERED: 50% Dextrose in Water 50 ML Syringe IVPUSH PRN (23:53)
[2022-01-14] MEDS ORDERED: risperiDONE 0.5 MG Tab PO PRN (23:53)
[2022-01-14] MEDS ORDERED: Sodium Chloride 0.65% Nasal Spray 45 ML Bottle NASBOTH PRN (23:53)
[2022-01-14] MEDS ORDERED: Glucagon,Human Recombinant 1 MG Vial IM PRN (23:53)
[2022-01-15] MEDS ORDERED: Acetaminophen 650 MG Supp RECTAL PRN (00:44)
[2022-01-15] MEDS: Sodium Chloride 0.9% 1,000 ML IV SCH (06:16)
[2022-01-15 06:32] LABS: ESTIMATED GFR 53 mL/min (>60)
[2022-01-15] MEDS: Aspirin 81 MG Tab.Chew PO SCH (09:45)
[2022-01-15] MEDS: Allopurinol 100 MG Tab PO SCH (09:45)
[2022-01-15] MEDS: Lactulose Soln 10 GM/15 ML 30 ML UD Cup PO SCH ×3 (09:45→17:48)
[2022-01-15] MEDS: Calcium Carbonate 500 MG Tablet PO SCH ×2 (09:45→17:48)
[2022-01-15] MEDS: Losartan 25 MG Tab PO SCH (09:45)
[2022-01-15] MEDS: Gabapentin 100 MG Cap PO SCH ×4 (09:45→21:36)
[2022-01-15] MEDS: risperiDONE 1 MG Tab PO SCH ×3 (09:45→22:02)
[2022-01-15] MEDS: Sodium Chloride 0.9% 10 ML Syringe FLUSH PRN ×3 (10:30→16:12)
[2022-01-15] MEDS: Piperacillin/Tazobactam 3.375 GM in Sodium Chloride 0.9% 50 ML IV SCH ×3 (10:30→22:22)
[2022-01-15] MEDS: Pantoprazole 40 MG Tab.CR PO SCH (10:32)
[2022-01-15] MEDS: LORazepam 1 MG Tab PO SCH ×3 (10:33→22:04)
[2022-01-15] MEDS: metFORMIN 500 MG Tab PO SCH (11:26)
[2022-01-15] MEDS ORDERED: DULoxetine 60 MG Cap PO SCH (21:00)
[2022-01-15] MEDS ORDERED: traZODone 100 MG Tab PO SCH (21:00)
[2022-01-15] MEDS ORDERED: Mirtazapine 15 MG Tab PO SCH (21:00)
[2022-01-15] MEDS ORDERED: Insulin Glargine,Human Rec. Analog 100 Units/ML 3 ML Pen SUBCUT SCH (21:00)
[2022-01-15] MEDS ORDERED: FLUOCINONIDE 0.05% TOP SCH (21:00)
[2022-01-15] MEDS ORDERED: LANTUS 100 UNIT/ML SUBCUT SCH (22:15)
[2022-01-15] MEDS: LACTULOSE PO SCH (22:24)
[2022-01-16] MEDS: Sodium Chloride 0.9% 10 ML Syringe FLUSH PRN ×3 (03:53→11:06)
[2022-01-16] MEDS: Piperacillin/Tazobactam 3.375 GM in Sodium Chloride 0.9% 50 ML IV SCH ×2 (03:54→09:44)
[2022-01-16 06:52] LABS: ESTIMATED GFR 53 mL/min (>60)
[2022-01-16] MEDS ORDERED: LACTULOSE PO SCH (08:00)
[2022-01-16] MEDS: Aspirin 81 MG Tab.Chew PO SCH (08:18)
[2022-01-16] MEDS: Losartan 25 MG Tab PO SCH (08:19)
[2022-01-16] MEDS: Allopurinol 100 MG Tab PO SCH (08:20)
[2022-01-16] MEDS: risperiDONE 1 MG Tab PO SCH ×3 (08:22→13:39)
[2022-01-16] MEDS: LACTULOSE PO SCH ×3 (08:23→12:06)
[2022-01-16] MEDS: Pantoprazole 40 MG Tab.CR PO SCH (08:28)
[2022-01-16] MEDS: Gabapentin 100 MG Cap PO SCH ×3 (08:32→13:40)
[2022-01-16] MEDS: LORazepam 1 MG Tab PO SCH ×3 (08:33→13:39)
[2022-01-16] MEDS: Calcium Carbonate 500 MG Tablet PO SCH ×2 (09:40→10:46)
[2022-01-16] MEDS: metFORMIN 500 MG Tab PO SCH ×2 (11:57→12:06)
[2022-01-16 13:23] VITALS: BP 116/56; PULSE 78
[2022-01-16] MEDS ORDERED: LANTUS 100 UNIT/ML SUBCUT SCH (21:00)
== END 2022-01-16 14:45 ==
LOC: FB.ED 21:23 → FB.MS 23:17
PROVIDERS: ADMIT Emergency Medicine; ATTEND Student in an Organized Health Care Education/Training Program
DX: G93.41 Metabolic encephalopathy (principal); I12.9 Hypertensive chronic kidney disease with stage 1 through stage 4 chronic kidney disease, or unspecified chronic kidney disease; E11.22 Type 2 diabetes mellitus with diabetic chronic kidney disease; N18.32 Chronic kidney disease, stage 3b; E78.00 Pure hypercholesterolemia, unspecified; K21.9 Gastro-esophageal reflux disease without esophagitis; E66.9 Obesity, unspecified; E86.0 Dehydration; F01.51 Vascular dementia, unspecified severity, with behavioral disturbance; G93.40 Encephalopathy, unspecified; R62.7 Adult failure to thrive; R77.0 Abnormality of albumin; F10.27 Alcohol dependence with alcohol-induced persisting dementia; M10.9 Gout, unspecified; M10.072 Idiopathic gout, left ankle and foot; D69.6 Thrombocytopenia, unspecified; E53.8 Deficiency of other specified B group vitamins; F03.90 Unspecified dementia, unspecified severity, without behavioral disturbance, psychotic disturbance, mood disturbance, and anxiety; J18.9 Pneumonia, unspecified organism; Z86.73 Personal history of transient ischemic attack (TIA), and cerebral infarction without residual deficits; Z90.49 Acquired absence of other specified parts of digestive tract; Z98.890 Other specified postprocedural states; Z88.1 Allergy status to other antibiotic agents; Z88.6 Allergy status to analgesic agent; Z88.8 Allergy status to other drugs, medicaments and biological substances; Z51.5 Encounter for palliative care; Z79.4 Long term (current) use of insulin; Z79.84 Long term (current) use of oral hypoglycemic drugs; Z79.899 Other long term (current) drug therapy; Z79.83 Long term (current) use of bisphosphonates; Z79.51 Long term (current) use of inhaled steroids
CPT/HCPCS: 36415; 71045; 80048; 80053; 81003; 82947; 83605; 85025; 86140; 87040; 94640; A9270; J1815; J2543; J3490; J7030; 99285; J7620

== ENCOUNTER 2022-05-10 03:48 | Inpatient (IN) | payer MEDICARE ==
[2022-05-10] MEDS ORDERED: Sodium Chloride 0.9% 10 ML Syringe FLUSH PRN (04:01)
[2022-05-10] MEDS ORDERED: methylPREDNISolone Sodium Succinate 500 MG/4 ML SDV IVPUSH ONE (04:04)
[2022-05-10] MEDS ORDERED: methylPREDNISolone Sodium Succinate 125 MG/2 ML SDV ONE (04:12)
[2022-05-10 04:14] LABS: ESTIMATED GFR 45 mL/min (>60)
[2022-05-10] MEDS ORDERED: methylPREDNISolone Sodium Succinate 125 MG/2 ML SDV IVPUSH ONE (04:15)
[2022-05-10] MEDS: Albuterol/Ipratropium 3.0-0.5 MG/3 ML Neb Soln NEB PRN (04:15)
[2022-05-10 04:34] LABS: PO2 ARTERIAL,POC 58 mmHg (83-108)
[2022-05-10] MEDS ORDERED: Ampicillin/Sulbactam Na 3 GM in Sodium Chloride 0.9% 100 ML IV ONE (05:00)
[2022-05-10] MEDS: Sodium Chloride 0.9% 1,000 ML IV SCH ×2 (05:10→14:15)
[2022-05-10] MEDS ORDERED: Acetaminophen 500 MG Tab PO ONE (05:37)
[2022-05-10 05:47] LABS: CORONAVIRUS COVID-19 NAA NEGATIVE (NEGATIVE)
[2022-05-10] MEDS: Ampicillin/Sulbactam Na 3 GM in Sodium Chloride 0.9% 100 ML IV SCH ×3 (10:56→22:00)
[2022-05-10] MEDS ORDERED: Glucose Gel 15 GM in 37.5 GM Tube PO PRN (11:21)
[2022-05-10] MEDS ORDERED: guaiFENesin 100 MG/5 ML Soln 5 ML UD Cup PO PRN (11:21)
[2022-05-10] MEDS ORDERED: Sodium Chloride 0.65% Nasal Spray 45 ML Bottle NASBOTH PRN (11:21)
[2022-05-10] MEDS ORDERED: Bisacodyl 10 MG Supp RECTAL PRN (11:21)
[2022-05-10] MEDS ORDERED: Albuterol 0.083% 2.5 MG/3 ML Neb Soln NEB PRN (11:21)
[2022-05-10] MEDS ORDERED: Glucagon,Human Recombinant 1 MG Vial IM PRN ×2 (11:21→12:00)
[2022-05-10] MEDS ORDERED: Polyvinyl Alcohol 1.4% Ophth Soln 15 ML Bottle EYEBOTH PRN (11:56)
[2022-05-10] MEDS ORDERED: Azithromycin 500 MG in Sodium Chloride 0.9% 250 ML IV SCH (12:00)
[2022-05-10] MEDS ORDERED: 50% Dextrose in Water 50 ML Syringe IVPUSH PRN (12:00)
[2022-05-10] MEDS: Losartan 25 MG Tab PO SCH (12:25)
[2022-05-10] MEDS: Aspirin 81 MG Tab.Chew PO SCH (12:25)
[2022-05-10] MEDS: Pantoprazole 40 MG Tab.CR PO SCH (12:30)
[2022-05-10] MEDS: Furosemide 20 MG Tab PO SCH (12:30)
[2022-05-10] MEDS: Polyethylene Glycol 3350 Powder 17 GM Packet PO SCH (12:30)
[2022-05-10] MEDS: Allopurinol 100 MG Tab PO SCH (12:31)
[2022-05-10] MEDS: Lactulose Soln 10 GM/15 ML 15 ML UD Cup PO SCH ×2 (12:32→18:13)
[2022-05-10] MEDS: risperiDONE 1 MG Tab PO SCH ×2 (12:46→18:14)
[2022-05-10] MEDS ORDERED: Insulin Lispro 100 Unit/ML 3 ML KwikPen SUBCUT ONE (13:11)
[2022-05-10] MEDS: LORazepam 1 MG Tab PO SCH ×3 (13:14→20:50)
[2022-05-10] MEDS: Gabapentin 400 MG Cap PO SCH ×3 (13:14→20:50)
[2022-05-10] MEDS: Insulin Lispro 100 Unit/ML 3 ML KwikPen SUBCUT SCH ×2 (13:15→18:11)
[2022-05-10] MEDS: DULoxetine 60 MG Cap PO SCH (18:10)
[2022-05-10] MEDS: Mirtazapine 15 MG Tab PO SCH (20:50)
[2022-05-10] MEDS: traZODone 50 MG Tab PO SCH (20:50)
[2022-05-11] MEDS: Ampicillin/Sulbactam Na 3 GM in Sodium Chloride 0.9% 100 ML IV SCH (04:59)
[2022-05-11] MEDS: Pantoprazole 40 MG Tab.CR PO SCH (06:06)
[2022-05-11 06:34] LABS: ESTIMATED GFR 53 mL/min (>60)
[2022-05-11] MEDS ORDERED: cefTRIAXone 1 GM Vial IVPUSH SCH (08:00)
[2022-05-11] MEDS: Lactulose Soln 10 GM/15 ML 15 ML UD Cup PO SCH ×3 (08:20→17:06)
[2022-05-11] MEDS: Losartan 25 MG Tab PO SCH (08:21)
[2022-05-11] MEDS: risperiDONE 1 MG Tab PO SCH ×3 (08:21→17:06)
[2022-05-11] MEDS: Allopurinol 100 MG Tab PO SCH (08:21)
[2022-05-11] MEDS: Aspirin 81 MG Tab.Chew PO SCH (08:21)
[2022-05-11] MEDS: Furosemide 20 MG Tab PO SCH (08:21)
[2022-05-11] MEDS: Polyethylene Glycol 3350 Powder 17 GM Packet PO SCH (08:22)
[2022-05-11] MEDS: LORazepam 1 MG Tab PO SCH ×4 (08:24→20:14)
[2022-05-11] MEDS: Gabapentin 400 MG Cap PO SCH ×4 (08:24→20:14)
[2022-05-11] MEDS: Insulin Lispro 100 Unit/ML 3 ML KwikPen SUBCUT SCH ×3 (08:25→17:34)
[2022-05-11] MEDS ORDERED: Sodium Chloride 0.45% 1,000 ML IV SCH (09:30)
[2022-05-11] MEDS: Albuterol/Ipratropium 3.0-0.5 MG/3 ML Neb Soln NEB PRN ×2 (10:39→20:14)
[2022-05-11] MEDS: Amoxicillin/Clavulanate K 875-125 MG Tab PO SCH ×2 (11:56→20:14)
[2022-05-11] MEDS ORDERED: Azithromycin 500 MG Tab PO SCH (12:00)
[2022-05-11] MEDS: DULoxetine 60 MG Cap PO SCH (17:06)
[2022-05-11] MEDS: Mirtazapine 15 MG Tab PO SCH (20:14)
[2022-05-11] MEDS: traZODone 50 MG Tab PO SCH (20:14)
[2022-05-12] MEDS: Pantoprazole 40 MG Tab.CR PO SCH (05:43)
[2022-05-12 07:33] LABS: ESTIMATED GFR 53 mL/min (>60)
[2022-05-12] MEDS: Insulin Lispro 100 Unit/ML 3 ML KwikPen SUBCUT SCH (08:23)
[2022-05-12 08:35] VITALS: BP 114/49; PULSE 107
[2022-05-12] MEDS: LORazepam 1 MG Tab PO SCH (08:39)
[2022-05-12] MEDS: Lactulose Soln 10 GM/15 ML 15 ML UD Cup PO SCH (08:39)
[2022-05-12] MEDS: risperiDONE 1 MG Tab PO SCH (08:39)
[2022-05-12] MEDS: Amoxicillin/Clavulanate K 875-125 MG Tab PO SCH (08:39)
[2022-05-12] MEDS: Aspirin 81 MG Tab.Chew PO SCH (08:39)
[2022-05-12] MEDS: Gabapentin 400 MG Cap PO SCH (08:40)
[2022-05-12] MEDS: Furosemide 20 MG Tab PO SCH (08:40)
[2022-05-12] MEDS: Polyethylene Glycol 3350 Powder 17 GM Packet PO SCH (08:40)
[2022-05-12] MEDS: Losartan 25 MG Tab PO SCH (08:40)
[2022-05-12] MEDS: Allopurinol 100 MG Tab PO SCH (08:40)
[2022-05-12] MEDS: Azithromycin 500 MG Tab PO ONE ×2 (10:29→10:48)
[2022-05-14] MEDS ORDERED: FLUOCINONIDE 0.05% TOP SCH (21:00)
== END 2022-05-12 10:45 | DRG 871 ==
LOC: FB.ED 03:48 → FB.MS 05:52 → EDBD 05:52
PROVIDERS: ADMIT Family Medicine; ATTEND Student in an Organized Health Care Education/Training Program
DX: A41.9 Sepsis, unspecified organism (principal); J69.0 Pneumonitis due to inhalation of food and vomit; E87.0 Hyperosmolality and hypernatremia; R65.20 Severe sepsis without septic shock; I12.9 Hypertensive chronic kidney disease with stage 1 through stage 4 chronic kidney disease, or unspecified chronic kidney disease; F10.27 Alcohol dependence with alcohol-induced persisting dementia; N17.9 Acute kidney failure, unspecified; R62.7 Adult failure to thrive; M10.072 Idiopathic gout, left ankle and foot; Z79.4 Long term (current) use of insulin; D69.6 Thrombocytopenia, unspecified; Z20.822 Contact with and (suspected) exposure to COVID-19; Z51.5 Encounter for palliative care; E78.00 Pure hypercholesterolemia, unspecified; K21.9 Gastro-esophageal reflux disease without esophagitis; E11.22 Type 2 diabetes mellitus with diabetic chronic kidney disease; N18.9 Chronic kidney disease, unspecified; F41.9 Anxiety disorder, unspecified; Z88.8 Allergy status to other drugs, medicaments and biological substances; Z79.82 Long term (current) use of aspirin; Z79.84 Long term (current) use of oral hypoglycemic drugs; Z79.899 Other long term (current) drug therapy; Z79.52 Long term (current) use of systemic steroids; Z86.73 Personal history of transient ischemic attack (TIA), and cerebral infarction without residual deficits
CPT/HCPCS: 0241U; 36415; 71045; 80048; 80053; 82803; 82947; 83605; 83880; 84484; 85025; 85379; 86140; 87040; 93005; 94640; 96374; 99285-25; A9270-GY; J0295; J0456; J1815; J2930; J3490; J7030; J7050; J7620; U0002

== ENCOUNTER 2022-07-06 04:10 | Inpatient (IN) | payer MEDICARE ==
[2022-07-06] MEDS ORDERED: Albuterol/Ipratropium 3.0-0.5 MG/3 ML Neb Soln NEB ONE (04:39)
[2022-07-06] MEDS ORDERED: Albuterol/Ipratropium 3.0-0.5 MG/3 ML Neb Soln ONE (04:40)
[2022-07-06] MEDS ORDERED: methylPREDNISolone Sodium Succinate 40 MG/1 ML SDV IVPUSH ONE (04:41)
[2022-07-06] MEDS: Sodium Chloride 0.9% 10 ML Syringe FLUSH PRN (04:45)
[2022-07-06 05:15] LABS: BASE EXCESS VENOUS,POC 2 mmol/L (-2 - 3+); PCO2 VENOUS,POC 53 mmHg (41-51); PH VENOUS,POC 7.34 pH Units (7.32-7.43)
[2022-07-06] MEDS ORDERED: Acetaminophen 650 MG Supp RECTAL ONE (05:26)
[2022-07-06 05:27] LABS: ESTIMATED GFR 53 mL/min (>60)
[2022-07-06] MEDS ORDERED: Sodium Chloride 0.9% 500 ML IV ONE (05:31)
[2022-07-06 06:30] LABS: CORONAVIRUS COVID-19 NAA NEGATIVE (NEGATIVE)
[2022-07-06] MEDS ORDERED: Sodium Chloride 0.9% 1,000 ML IV SCH ×2 (06:30→06:45)
[2022-07-06] MEDS ORDERED: Acetaminophen 650 MG Supp RECTAL PRN (06:36)
[2022-07-06] MEDS ORDERED: Ondansetron 4 MG/2 ML SDV IV PRN (06:36)
[2022-07-06] MEDS ORDERED: 50% Dextrose in Water 50 ML Syringe IVPUSH PRN (06:41)
[2022-07-06] MEDS ORDERED: Glucagon,Human Recombinant 1 MG Vial IM PRN ×2 (06:41→09:26)
[2022-07-06] MEDS ORDERED: Insulin Lispro 100 Unit/ML 3 ML KwikPen SUBCUT SCH (06:45)
[2022-07-06] MEDS ORDERED: Magnesium Sulfate/Water 2 GM in Premix Bag 1 BAG IV ONE (06:46)
[2022-07-06] MEDS ORDERED: Piperacillin/Tazobactam 3.375 GM in Sodium Chloride 0.9% 50 ML IV SCH (07:00)
[2022-07-06] MEDS ORDERED: VANCOmycin 1.75 GM/350 ML 1.75 GM in Premix Bag 1 BAG IV ONE (08:00)
[2022-07-06] MEDS ORDERED: Enoxaparin 30 MG/0.3 ML Syringe SUBCUT SCH (09:00)
[2022-07-06] MEDS ORDERED: Glucose Gel 15 GM in 37.5 GM Tube PO PRN (09:26)
[2022-07-06] MEDS ORDERED: Bisacodyl 10 MG Supp RECTAL PRN ×2 (09:26)
[2022-07-06] MEDS ORDERED: Non-Formulary Medication 1 Each (Carboxymethylcellulose Sodium [Artificial Tears] 15 ML Dr EYEBOTH PRN (09:26)
[2022-07-06] MEDS ORDERED: Carboxymethylcellulose Sodium 0.5% Ophth Soln 15 ML Bottle EYEBOTH PRN (10:00)
[2022-07-06] MEDS: Pantoprazole 40 MG Vial IVPUSH SCH ×2 (10:03→17:46)
[2022-07-06] MEDS: Gabapentin 400 MG Cap PO SCH ×4 (10:14→20:37)
[2022-07-06] MEDS: LORazepam 1 MG Tab PO SCH ×4 (10:15→20:32)
[2022-07-06] MEDS: risperiDONE 1 MG Tab PO SCH ×3 (10:19→17:42)
[2022-07-06] MEDS: Losartan 25 MG Tab PO SCH (10:19)
[2022-07-06] MEDS: Aspirin 81 MG Tab.Chew PO SCH (10:20)
[2022-07-06] MEDS: Lactulose Soln 10 GM/15 ML 30 ML UD Cup PO SCH ×2 (10:20→20:34)
[2022-07-06] MEDS: Allopurinol 100 MG Tab PO SCH (10:20)
[2022-07-06] MEDS: Albuterol/Ipratropium 3.0-0.5 MG/3 ML Neb Soln NEB SCH ×4 (10:21→20:37)
[2022-07-06] MEDS: Sodium Chloride 0.45% 1,000 ML IV SCH ×2 (11:30→20:50)
[2022-07-06] MEDS ORDERED: Insulin Lispro 100 Unit/ML 3 ML KwikPen SUBCUT ONE (13:27)
[2022-07-06] MEDS: Insulin Lispro 100 Unit/ML 3 ML KwikPen SUBCUT SCH ×2 (13:33→17:35)
[2022-07-06] MEDS: Piperacillin/Tazobactam 3.375 GM in Sodium Chloride 0.9% 50 ML IV SCH ×2 (15:55→20:59)
[2022-07-06] MEDS: methylPREDNISolone Sodium Succinate 40 MG/1 ML SDV IVPUSH SCH (17:43)
[2022-07-06] MEDS: DULoxetine 60 MG Cap PO SCH (17:43)
[2022-07-06] MEDS: Mirtazapine 15 MG Tab PO SCH (20:38)
[2022-07-06] MEDS: traZODone 50 MG Tab PO SCH (20:39)
[2022-07-07] MEDS: Piperacillin/Tazobactam 3.375 GM in Sodium Chloride 0.9% 50 ML IV SCH ×4 (03:42→22:15)
[2022-07-07] MEDS: Sodium Chloride 0.45% 1,000 ML IV SCH (04:03)
[2022-07-07] MEDS: methylPREDNISolone Sodium Succinate 40 MG/1 ML SDV IVPUSH SCH ×2 (06:01→17:35)
[2022-07-07] MEDS: Sodium Chloride 0.9% 10 ML Syringe FLUSH PRN ×2 (06:03→22:23)
[2022-07-07] MEDS: Pantoprazole 40 MG Vial IVPUSH SCH ×2 (06:03→17:59)
[2022-07-07] MEDS: Albuterol/Ipratropium 3.0-0.5 MG/3 ML Neb Soln NEB SCH ×4 (06:04→21:04)
[2022-07-07 06:51] LABS: ESTIMATED GFR 45 mL/min (>60)
[2022-07-07] MEDS ORDERED: Insulin Lispro 100 Unit/ML 3 ML KwikPen SUBCUT SCH (08:03)
[2022-07-07] MEDS ORDERED: 50% Dextrose in Water 50 ML Syringe IVPUSH PRN (08:03)
[2022-07-07] MEDS ORDERED: Glucagon,Human Recombinant 1 MG Vial IM PRN (08:03)
[2022-07-07] MEDS: LORazepam 1 MG Tab PO SCH ×4 (08:29→21:09)
[2022-07-07] MEDS: risperiDONE 1 MG Tab PO SCH ×3 (08:30→17:35)
[2022-07-07] MEDS: Insulin Lispro 100 Unit/ML 3 ML KwikPen SUBCUT SCH ×3 (08:31→17:39)
[2022-07-07] MEDS: Aspirin 81 MG Tab.Chew PO SCH (08:34)
[2022-07-07] MEDS: Lactulose Soln 10 GM/15 ML 30 ML UD Cup PO SCH ×2 (08:34→21:03)
[2022-07-07] MEDS: Gabapentin 400 MG Cap PO SCH ×4 (09:00→21:10)
[2022-07-07] MEDS ORDERED: VANCOmycin 1.5 GM/300 ML 300 ML IV SCH (11:00)
[2022-07-07] MEDS: Allopurinol 100 MG Tab PO SCH (12:20)
[2022-07-07] MEDS: Losartan 25 MG Tab PO SCH (12:20)
[2022-07-07] MEDS: DULoxetine 60 MG Cap PO SCH (17:35)
[2022-07-07] MEDS: Mirtazapine 15 MG Tab PO SCH (21:04)
[2022-07-07] MEDS: traZODone 50 MG Tab PO SCH (21:07)
[2022-07-08] MEDS: Piperacillin/Tazobactam 3.375 GM in Sodium Chloride 0.9% 50 ML IV SCH ×2 (03:51→10:45)
[2022-07-08] MEDS: Sodium Chloride 0.9% 10 ML Syringe FLUSH PRN ×3 (04:00→05:52)
[2022-07-08] MEDS: methylPREDNISolone Sodium Succinate 40 MG/1 ML SDV IVPUSH SCH (05:52)
[2022-07-08] MEDS: Pantoprazole 40 MG Vial IVPUSH SCH (06:16)
[2022-07-08] MEDS: Albuterol/Ipratropium 3.0-0.5 MG/3 ML Neb Soln NEB SCH ×2 (06:17→10:44)
[2022-07-08 07:16] LABS: ESTIMATED GFR 45 mL/min (>60)
[2022-07-08] MEDS: Insulin Lispro 100 Unit/ML 3 ML KwikPen SUBCUT SCH (08:36)
[2022-07-08] MEDS: risperiDONE 1 MG Tab PO SCH (08:36)
[2022-07-08] MEDS: LORazepam 1 MG Tab PO SCH (08:37)
[2022-07-08] MEDS: Allopurinol 100 MG Tab PO SCH (08:37)
[2022-07-08] MEDS: Gabapentin 400 MG Cap PO SCH (08:37)
[2022-07-08] MEDS: Lactulose Soln 10 GM/15 ML 30 ML UD Cup PO SCH (08:39)
[2022-07-08] MEDS: Losartan 25 MG Tab PO SCH (08:40)
[2022-07-08] MEDS: Aspirin 81 MG Tab.Chew PO SCH (08:41)
[2022-07-08 10:08] VITALS: BP 144/65; PULSE 65
[2022-07-08] MEDS ORDERED: Amoxicillin/Clavulanate K 875-125 MG Tab PO SCH (10:45)
[2022-07-08] MEDS ORDERED: VANCOmycin 1 GM/200 ML 200 ML IV SCH (11:00)
[2022-07-09] MEDS ORDERED: FLUOCINONIDE 0.05% TOP SCH (21:00)
== END 2022-07-08 11:07 | DRG 177 ==
LOC: FB.ED 04:17 → FB.MS 07:10 → OBSVTOIN 09:25
PROVIDERS: ADMIT Emergency Medicine; ATTEND Family Medicine
DX: J69.0 Pneumonitis due to inhalation of food and vomit (principal); J96.01 Acute respiratory failure with hypoxia; E87.20 Acidosis, unspecified; F10.27 Alcohol dependence with alcohol-induced persisting dementia; E86.0 Dehydration; E83.42 Hypomagnesemia; Z20.822 Contact with and (suspected) exposure to COVID-19; I12.9 Hypertensive chronic kidney disease with stage 1 through stage 4 chronic kidney disease, or unspecified chronic kidney disease; R32 Unspecified urinary incontinence; E11.22 Type 2 diabetes mellitus with diabetic chronic kidney disease; F41.9 Anxiety disorder, unspecified; N18.32 Chronic kidney disease, stage 3b; G30.1 Alzheimer's disease with late onset; F02.B0 Dementia in other diseases classified elsewhere, moderate, without behavioral disturbance, psychotic disturbance, mood disturbance, and anxiety; E78.00 Pure hypercholesterolemia, unspecified; Z51.5 Encounter for palliative care; E66.9 Obesity, unspecified; K21.9 Gastro-esophageal reflux disease without esophagitis; E11.65 Type 2 diabetes mellitus with hyperglycemia; M10.072 Idiopathic gout, left ankle and foot; Z88.8 Allergy status to other drugs, medicaments and biological substances; Z66 Do not resuscitate; Z79.82 Long term (current) use of aspirin; Z79.84 Long term (current) use of oral hypoglycemic drugs; Z79.899 Other long term (current) drug therapy; Z86.73 Personal history of transient ischemic attack (TIA), and cerebral infarction without residual deficits; Z68.33 Body mass index [BMI] 33.0-33.9, adult; Z87.891 Personal history of nicotine dependence
CPT/HCPCS: 0241U; 36415; 71045; 80048; 80053; 80202; 82947; 83605; 83735; 83880; 84484; 85025; 86140; 87040; 93005; 93010; 94640; 96361; 96374; 99223; 99233; 99238; 99285; 99285-25; A9270-GY; C9113; G0378; J1815; J2543; J2920; J3370; J3475; J3490; J7030; J7040; J7620; U0002

== ENCOUNTER 2022-08-25 11:00 | Inpatient (IN) | payer MEDICARE ==
[2022-08-25 11:43] LABS: ESTIMATED GFR 42 mL/min (>60)
[2022-08-25] MEDS ORDERED: Sodium Chloride 0.9% 1,000 ML IV SCH (12:00)
[2022-08-25] MEDS ORDERED: cefTRIAXone 1 GM Vial IVPUSH STA (12:09)
[2022-08-25] MEDS ORDERED: Acetaminophen 325 MG Tab PO PRN ×2 (15:56→16:04)
[2022-08-25] MEDS ORDERED: Ondansetron 4 MG/2 ML SDV IV PRN (15:56)
[2022-08-25] MEDS ORDERED: Glucose Gel 15 GM in 37.5 GM Tube PO PRN (16:04)
[2022-08-25] MEDS ORDERED: Albuterol 0.083% 2.5 MG/3 ML Neb Soln INH PRN (16:04)
[2022-08-25] MEDS ORDERED: Cocoa Butter/Phenylephrine Rectal Supp RECTAL PRN (16:04)
[2022-08-25] MEDS ORDERED: Menthol/Zinc Oxide Ointment 113 GM Tube TOP PRN (16:04)
[2022-08-25] MEDS ORDERED: Glucagon,Human Recombinant 1 MG Vial IM PRN (16:04)
[2022-08-25] MEDS ORDERED: Bisacodyl 10 MG Supp RECTAL PRN (16:04)
[2022-08-25] MEDS ORDERED: guaiFENesin 100 MG/5 ML Soln 5 ML UD Cup PO PRN (16:04)
[2022-08-25] MEDS ORDERED: Sodium Chloride 0.9% 500 ML IV ONE (16:12)
[2022-08-25] MEDS: Sodium Chloride 0.9% 1,000 ML IV SCH (16:30)
[2022-08-25] MEDS ORDERED: Polyvinyl Alcohol 1.4% Ophth Soln 15 ML Bottle EYEBOTH PRN (16:52)
[2022-08-25] MEDS: LORazepam 1 MG Tab PO SCH ×2 (17:53→20:18)
[2022-08-25] MEDS: risperiDONE 1 MG Tab PO SCH (17:54)
[2022-08-25] MEDS: DULoxetine 60 MG Cap PO SCH (17:54)
[2022-08-25] MEDS: Gabapentin 400 MG Cap PO SCH ×2 (17:54→20:19)
[2022-08-25] MEDS ORDERED: Acetaminophen 500 MG Tab PO PRN (18:05)
[2022-08-25] MEDS: Lactulose Soln 10 GM/15 ML 30 ML UD Cup PO SCH (20:19)
[2022-08-25] MEDS: Albuterol 0.083% 2.5 MG/3 ML Neb Soln INH SCH (20:20)
[2022-08-25] MEDS: Mirtazapine 15 MG Tab PO SCH (20:21)
[2022-08-25] MEDS: traZODone 50 MG Tab PO SCH (20:21)
[2022-08-25] MEDS ORDERED: Acetaminophen 500 MG Tab PO SCH (21:00)
[2022-08-26] MEDS: Sodium Chloride 0.9% 1,000 ML IV SCH (02:15)
[2022-08-26] MEDS: Pantoprazole 40 MG Tab.CR PO SCH (06:03)
[2022-08-26 06:34] LABS: ESTIMATED GFR 58 mL/min (>60)
[2022-08-26] MEDS: risperiDONE 1 MG Tab PO SCH ×3 (09:59→17:02)
[2022-08-26] MEDS: LORazepam 1 MG Tab PO SCH ×4 (09:59→20:48)
[2022-08-26] MEDS: Lactulose Soln 10 GM/15 ML 30 ML UD Cup PO SCH ×2 (10:00→20:44)
[2022-08-26] MEDS: Gabapentin 400 MG Cap PO SCH ×4 (10:01→20:48)
[2022-08-26] MEDS: Allopurinol 100 MG Tab PO SCH (10:01)
[2022-08-26] MEDS: Azithromycin 500 MG in Sodium Chloride 0.9% 250 ML IV SCH (10:01)
[2022-08-26] MEDS: Albuterol 0.083% 2.5 MG/3 ML Neb Soln INH SCH (11:26)
[2022-08-26] MEDS: cefTRIAXone 1 GM Vial IVPUSH SCH (12:07)
[2022-08-26] MEDS ORDERED: SELENIUM SULFIDE TOP SCH (16:04)
[2022-08-26] MEDS ORDERED: MENTHOL TOP SCH (16:04)
[2022-08-26] MEDS: DULoxetine 60 MG Cap PO SCH (17:02)
[2022-08-26] MEDS: Albuterol/Ipratropium 3.0-0.5 MG/3 ML Neb Soln INH SCH (20:45)
[2022-08-26] MEDS: Mirtazapine 15 MG Tab PO SCH (20:45)
[2022-08-26] MEDS: traZODone 50 MG Tab PO SCH (20:45)
[2022-08-27 06:43] LABS: ESTIMATED GFR 64 mL/min (>60)
[2022-08-27] MEDS: Pantoprazole 40 MG Tab.CR PO SCH (07:48)
[2022-08-27] MEDS: risperiDONE 1 MG Tab PO SCH ×3 (07:51→18:24)
[2022-08-27] MEDS: LORazepam 1 MG Tab PO SCH ×4 (08:06→20:30)
[2022-08-27] MEDS: Gabapentin 400 MG Cap PO SCH ×4 (08:07→20:30)
[2022-08-27] MEDS: Lactulose Soln 10 GM/15 ML 30 ML UD Cup PO SCH ×2 (08:08→20:30)
[2022-08-27] MEDS: Albuterol/Ipratropium 3.0-0.5 MG/3 ML Neb Soln INH SCH ×2 (08:08→20:32)
[2022-08-27] MEDS: Allopurinol 100 MG Tab PO SCH (08:08)
[2022-08-27] MEDS: Azithromycin 500 MG in Sodium Chloride 0.9% 250 ML IV SCH (09:41)
[2022-08-27] MEDS: cefTRIAXone 1 GM Vial IVPUSH SCH (10:59)
[2022-08-27] MEDS: DULoxetine 60 MG Cap PO SCH (18:24)
[2022-08-27] MEDS: Albuterol/Ipratropium 3.0-0.5 MG/3 ML Neb Soln INH PRN (18:46)
[2022-08-27] MEDS: traZODone 50 MG Tab PO SCH (20:31)
[2022-08-27] MEDS: Mirtazapine 15 MG Tab PO SCH (20:32)
[2022-08-27] MEDS ORDERED: FLUOCINONIDE 0.05% TOP SCH (21:00)
[2022-08-28] MEDS: Pantoprazole 40 MG Tab.CR PO SCH (06:11)
[2022-08-28 06:44] LABS: ESTIMATED GFR 64 mL/min (>60)
[2022-08-28] MEDS: risperiDONE 1 MG Tab PO SCH ×3 (07:52→17:53)
[2022-08-28] MEDS: LORazepam 1 MG Tab PO SCH ×4 (08:11→20:52)
[2022-08-28] MEDS: Gabapentin 400 MG Cap PO SCH ×4 (08:13→20:52)
[2022-08-28] MEDS: Lactulose Soln 10 GM/15 ML 30 ML UD Cup PO SCH ×2 (08:13→20:52)
[2022-08-28] MEDS: Allopurinol 100 MG Tab PO SCH (08:13)
[2022-08-28] MEDS: Albuterol/Ipratropium 3.0-0.5 MG/3 ML Neb Soln INH SCH ×2 (08:17→20:53)
[2022-08-28] MEDS: Azithromycin 500 MG in Sodium Chloride 0.9% 250 ML IV SCH (10:40)
[2022-08-28] MEDS: Sodium Chloride 0.45% 1,000 ML IV SCH (10:53)
[2022-08-28] MEDS: cefTRIAXone 1 GM Vial IVPUSH SCH (12:00)
[2022-08-28] MEDS: DULoxetine 60 MG Cap PO SCH (17:52)
[2022-08-28] MEDS: Mirtazapine 15 MG Tab PO SCH (20:54)
[2022-08-28] MEDS: traZODone 50 MG Tab PO SCH (20:54)
[2022-08-29] MEDS: Sodium Chloride 0.45% 1,000 ML IV SCH (02:38)
[2022-08-29] MEDS: Pantoprazole 40 MG Tab.CR PO SCH (06:15)
[2022-08-29 07:17] LABS: ESTIMATED GFR 71 mL/min (>60)
[2022-08-29] MEDS: risperiDONE 1 MG Tab PO SCH ×3 (08:09→17:12)
[2022-08-29] MEDS: LORazepam 1 MG Tab PO SCH ×4 (08:10→20:16)
[2022-08-29] MEDS: Lactulose Soln 10 GM/15 ML 30 ML UD Cup PO SCH ×2 (08:10→20:17)
[2022-08-29] MEDS: Allopurinol 100 MG Tab PO SCH (08:11)
[2022-08-29] MEDS: Gabapentin 400 MG Cap PO SCH ×4 (08:11→20:16)
[2022-08-29] MEDS: Albuterol/Ipratropium 3.0-0.5 MG/3 ML Neb Soln INH SCH ×2 (08:59→20:00)
[2022-08-29] MEDS: Aspirin 81 MG Tab.Chew PO SCH (09:22)
[2022-08-29] MEDS: Losartan 25 MG Tab PO SCH (09:23)
[2022-08-29] MEDS: Amoxicillin/Clavulanate K 875-125 MG Tab PO SCH ×2 (09:26→20:16)
[2022-08-29] MEDS: Azithromycin 500 MG in Sodium Chloride 0.9% 250 ML IV SCH (11:00)
[2022-08-29] MEDS: Albuterol/Ipratropium 3.0-0.5 MG/3 ML Neb Soln INH PRN (11:25)
[2022-08-29] MEDS: DULoxetine 60 MG Cap PO SCH (17:12)
[2022-08-29] MEDS: traZODone 50 MG Tab PO SCH (20:16)
[2022-08-29] MEDS: Mirtazapine 15 MG Tab PO SCH (20:16)
[2022-08-30] MEDS: Pantoprazole 40 MG Tab.CR PO SCH (06:06)
[2022-08-30] MEDS: risperiDONE 1 MG Tab PO SCH (08:31)
[2022-08-30] MEDS: Losartan 25 MG Tab PO SCH (08:32)
[2022-08-30] MEDS: Lactulose Soln 10 GM/15 ML 30 ML UD Cup PO SCH (08:33)
[2022-08-30] MEDS: Aspirin 81 MG Tab.Chew PO SCH (08:35)
[2022-08-30] MEDS: Albuterol/Ipratropium 3.0-0.5 MG/3 ML Neb Soln INH SCH (08:35)
[2022-08-30] MEDS: Allopurinol 100 MG Tab PO SCH (08:35)
[2022-08-30] MEDS: Amoxicillin/Clavulanate K 875-125 MG Tab PO SCH (08:35)
[2022-08-30] MEDS: Gabapentin 400 MG Cap PO SCH (08:41)
[2022-08-30] MEDS: LORazepam 1 MG Tab PO SCH (08:41)
[2022-08-30 10:50] VITALS: BP 143/68; PULSE 82
== END 2022-08-30 10:45 | DRG 177 ==
LOC: FB.ED 11:00 → FB.MS 15:56
PROVIDERS: ADMIT Family Medicine; ATTEND Family Medicine
DX: J69.0 Pneumonitis due to inhalation of food and vomit (principal); G93.41 Metabolic encephalopathy; N30.00 Acute cystitis without hematuria; N17.9 Acute kidney failure, unspecified; E87.20 Acidosis, unspecified; F03.918 Unspecified dementia, unspecified severity, with other behavioral disturbance; E87.0 Hyperosmolality and hypernatremia; D61.818 Other pancytopenia; I13.0 Hypertensive heart and chronic kidney disease with heart failure and stage 1 through stage 4 chronic kidney disease, or unspecified chronic kidney disease; E86.0 Dehydration; I95.9 Hypotension, unspecified; E11.22 Type 2 diabetes mellitus with diabetic chronic kidney disease; M10.9 Gout, unspecified; N18.32 Chronic kidney disease, stage 3b; E11.65 Type 2 diabetes mellitus with hyperglycemia; I50.9 Heart failure, unspecified; E78.00 Pure hypercholesterolemia, unspecified; D69.6 Thrombocytopenia, unspecified; J44.9 Chronic obstructive pulmonary disease, unspecified; D63.1 Anemia in chronic kidney disease; K70.30 Alcoholic cirrhosis of liver without ascites; M19.90 Unspecified osteoarthritis, unspecified site; F41.9 Anxiety disorder, unspecified; E78.5 Hyperlipidemia, unspecified; F98.8 Other specified behavioral and emotional disorders with onset usually occurring in childhood and adolescence; Z90.89 Acquired absence of other organs; K21.9 Gastro-esophageal reflux disease without esophagitis; Z98.890 Other specified postprocedural states; F10.97 Alcohol use, unspecified with alcohol-induced persisting dementia; Z88.8 Allergy status to other drugs, medicaments and biological substances; E66.9 Obesity, unspecified; Z79.82 Long term (current) use of aspirin; Z79.899 Other long term (current) drug therapy; Z86.73 Personal history of transient ischemic attack (TIA), and cerebral infarction without residual deficits; Z79.84 Long term (current) use of oral hypoglycemic drugs
CPT/HCPCS: 36415; 70450; 71045; 80048; 80053; 81001; 82140; 83605; 83735; 83880; 84484; 85025; 87086; 87088; 87186; 93005; 93010; 94640; 96361; 96374; 99223; 99233; 99239; 99285; 99285-25; A9270-GY; C1758; J0456; J0696; J7030; J7040; J7050; J7620; U0002

== ENCOUNTER 2022-12-13 15:58 | Emergency (ER) | payer MEDICARE ==
[2022-12-13 17:27] LABS: BASOPHILS PERCENT AUTO 0.9 % (0.3-3.8); EOSINOPHILS ABSOLUTE AUTO 0.1 x10-3/uL (0.0-0.6); EOSINOPHILS PERCENT AUTO 4.7 % (0.1-6.8); HEMATOCRIT 34.3 % (38.3-50.1); HEMOGLOBIN 11.2 g/dL (12.9-17.7); LYMPHOCYTES PERCENT AUTO 30.5 % (15.8-45.3); MEAN CORPUSCULAR HEMOGLOBIN 29.8 pg (27.0-33.3); MEAN CORPUSCULAR HGB CONC 32.7 g/dL (28.7-35.3); MEAN CORPUSCULAR VOLUME 91.1 fL (80.8-98.7); MEAN PLATELET VOLUME 9.8 fL (6.7-11.0); MONOCYTES ABSOLUTE AUTO 0.2 x10-3/uL (0.0-1.2); MONOCYTES PERCENT AUTO 6.6 % (5.5-15.2); NEUTROPHILS ABSOLUTE AUTO 1.8 x10-3/uL (1.7-6.9); NEUTROPHILS PERCENT AUTO 57.3 % (40.3-71.8); PLATELET COUNT,PLT 68 x10(3)uL (117-477); RED BLOOD CELL COUNT 3.77 x10(6)uL (3.90-5.90); RED CELL DISTRIBUTION WIDTH 14.7 % (12.4-15.0); WHITE BLOOD CELL COUNT,WBC 3.1 x10-3/uL (3.2-10.1)
[2022-12-13 17:36] LABS: BLOOD UREA NITROGEN,BUN 17 mg/dL (7-18); BUN/CREATININE RATIO 13.1 (9-20); CALCIUM 8.7 mg/dL (8.6-10.2); CARBON DIOXIDE,CO2 30 mmol/L (21-32); CHLORIDE,CL 107 mmol/L (100-110); CREATININE 1.3 mg/dL (0.70-1.30); ESTIMATED GFR 58 mL/min (>60); GLUCOSE RANDOM 89 mg/dL (80-116); POTASSIUM,K 4.5 mmol/L (3.5-5.3); SODIUM,NA 143 mmol/L (135-145)
[2022-12-13 17:42] LABS: A/G RATIO 0.7; ALANINE AMINOTRANSFERASE,ALT 21 U/L (12-36); ALBUMIN 2.9 g/dL (3.2-4.6); ALKALINE PHOSPHATASE 129 IU/L (56-112); ASPARTATE AMNIOTRANSFERASE,AST 21 IU/L (5-25); BILIRUBIN TOTAL 0.3 mg/dL (0.1-1.3); MAGNESIUM 1.7 mg/dL (1.8-2.5)
[2022-12-13 19:12] LABS: BILIRUBIN,URINE NEGATIVE (NEGATIVE); GLUCOSE,URINE NORMAL (NORMAL); KETONES,URINE NEGATIVE (NEGATIVE); LEUKOCYTE ESTERASE,URINE NEGATIVE (NEGATIVE); NITRITE,URINE NEGATIVE (NEGATIVE); OCCULT BLOOD,URINE MODERATE (NEGATIVE); PROTEIN,URINE NEGATIVE (NEGATIVE); UROBILINOGEN,URINE 1 mg/dL (NEGATIVE)
[2022-12-13 19:21] LABS: APPEARANCE,URINE CLEAR (CLEAR); COLOR,URINE YELLOW (YELLOW)
[2022-12-13 19:22] LABS: SQUAMOUS EPITHELIAL CELLS,UR RARE (NS,R,O); WBC,URINE 0-5 (0-5)
[2022-12-13 19:23] LABS: BACTERIA,URINE RARE (NS)
[2022-12-13 20:53] VITALS: BP 139/63; PULSE 71
== END 2022-12-13 20:58 ==
LOC: FB.ED 15:58
DX: S42.322D Displaced transverse fracture of shaft of humerus, left arm, subsequent encounter for fracture with routine healing (principal); G30.1 Alzheimer's disease with late onset; R29.6 Repeated falls; E11.9 Type 2 diabetes mellitus without complications; J44.9 Chronic obstructive pulmonary disease, unspecified; K21.9 Gastro-esophageal reflux disease without esophagitis; Z86.73 Personal history of transient ischemic attack (TIA), and cerebral infarction without residual deficits; Z79.82 Long term (current) use of aspirin; Z79.51 Long term (current) use of inhaled steroids; Z79.899 Other long term (current) drug therapy
CPT/HCPCS: 36415; 70450; 71045; 72125; 73030; 73060; 80053; 81001; 83735; 85025; 87086; 99285; C1758